=== PATIENT | female | born 1945 | race Caucasian/White ===

== ENCOUNTER 2022-11-09 14:40 | Inpatient (IN) ==
[2022-11-09] MEDS ORDERED: morphine 2 MG/ML VIAL IV ONE (14:53)
[2022-11-09] MEDS ORDERED: ONDANSETRON 4 MG/2 ML VIAL IV ONE (15:10)
--- NOTE | 2022-11-09 15:19 | XRay Report ---
CLINICAL INFORMATION: Trauma-fall COMPARISON: 06/11/2016 FINDINGS: Sacroiliac and hip joints show mild degeneration. Minimally displaced intertrochanteric fracture the right hip appreciated. No other osseous abnormality. Soft tissues are unremarkable. IMPRESSION: Minimally displaced acute intertrochanteric fracture-right hip Interpreted and Authenticated by: Chano Dickson 11/09/22
[2022-11-09] MEDS ORDERED: morphine 2 MG/ML VIAL IV PRN (15:41)
--- NOTE | 2022-11-09 15:47 | Emergency Department Note ---
Fall HPI General Chief Complaint: Fall Stated Complaint: fall Time Seen by Provider: 11/09/22 14:49 Source: patient and EMS Mode of arrival: EMS History of Present Illness HPI Narrative: 76-year-old female with history of abdominal aortic aneurysm, renal artery stenosis, CKD stage III, hypertension, rectal prolapse, hypertension, chronic pain, dementia presents the ED after her fall she sustained a fall earlier this morning onto her right side, now with right hip pain and ambulatory dysfunction. According to EMS the patient fell around 4 AM, was able to get back up per her stepson, and then sustained a second fall at which point EMS was called. Patient denies hitting her head. She is not on blood thinners. Stress test in 2017 shows no ischemia with an EF of 80%. Renal ultrasound from 2019 shows bilateral renal artery stenosis, greater than 50%. Related Data Home Medications Medication Instructions Recorded Confirmed cyanocobalamin (vitamin B-12) 1,000 mcg IM QMONTH 04/15/11/08/22 1,000 mcg/mL injection solution metoprolol succinate 25 mg 25 mg PO QDAY 12/19/15 11/09/22 tablet,extended release 24 hr nitroglycerin 0.4 mg sublingual 0.4 mg sublingual Q5MIN PRN Chest 12/19/15 11/08/22 tablet Pain famotidine 20 mg tablet 40 mg PO QDAY 11/06/19 11/09/22 amlodipine 5 mg tablet 5 mg PO BID 08/27/20 11/09/22 losartan 100 mg tablet 100 mg PO QDAY 08/27/20 11/09/22 calcium carbonate 600 mg calcium 1,200 mg PO QDAY 02/23/21 11/08/22 (1,500 mg) tablet (Calcium) cholecalciferol (vitamin D3) 1,250 1,250 mcg PO .2xwk 02/23/21 11/08/22 mcg (50,000 unit) capsule sdohqra-fmsqkvlemoxsa-uktvidkz 250 1 tab PO Q6H PRN 08/25/22 11/08/22 mg-250 mg-65 mg tablet (Excedrin Extra Strength) diphenhydramine HCl 50 mg capsule 50 mg PO QHS PRN sleep 08/25/22 11/08/22 (Unisom SleepGels) hydrocodone 5 mg-acetaminophen 325 1 tab PO TID PRN Pain 08/25/22 11/09/22 mg tablet ketorolac 0.5 % eye drops 1 drp ophthalmic (eye) TID 08/25/22 11/09/22 latanoprost 0.005 % eye drops 1 drp ophthalmic (eye) QDAY 08/25/22 11/08/22 loteprednol etabonate 0.5 % eye 1 drp ophthalmic (eye) QDAY 08/25/22 11/08/22 drops,suspension Previous Rx's Medication Instructions Recorded ezetimibe 10 mg tablet (Zetia) 10 mg PO QDAY #90 tabs 06/10/17 allopurinol 100 mg tablet 100 mg PO QDAY #30 tabs 12/12/17 Allergies Allergy/AdvReac Type Severity Reaction Status Date / Time olmesartan [From Benicar] Allergy Mild Itching Verified 11/09/22 14:54 rosuvastatin [From Crestor] AdvReac Intermediate Memory Verified 11/09/22 14:54 problem atorvastatin AdvReac Intermediate Joint Pain Uncoded 11/08/22 10:12 Review of Systems ROS ROS Narrative: Narrative: All systems ED: reviewed and negative except as stated. 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) Menopausal syndrome (Chronic) Osteoporosis (Chronic) Postnasal drip (Chronic 02/25/14) Secondary hyperparathyroidism, non-renal (Chronic 01/31/14) Vitamin B 12 deficiency (Chronic 01/31/14) Vitamin B12 nutritional deficiency (Chronic) Stenosis of carotid artery (Chronic) Chronic kidney disease, stage II (mild) (Chronic) Hyperparathyroidism (Chronic) Hypertensive renal disease (Chronic) Anemia (Chronic) Hyperlipidemia (Chronic) Dyslipidemia (Chronic) Stress-induced cardiomyopathy (Chronic) Benign hypertension (Chronic) Atherosclerosis of artery (Acute) Diarrhea (Acute) Arthralgia (Chronic) Chronic use of opiate drugs therapeutic purposes (Chronic) Abdominal aortic aneurysm (Chronic) CKD stage G3a/A2, GFR 45-59 and albumin creatinine ratio 30-299 mg/g (Chronic) Atherosclerotic renal artery stenosis, bilateral (Chronic) Renovascular hypertension with goal blood pressure less than 130/85 (Chronic) Idiopathic hypercalcemia (Chronic) Hyperuricemia, drug-induced, asymptomatic (Acute) Hypercalcemia due to a drug (Acute) COVID-19 (Acute) Muscle spasm of back (Acute) Rectal prolapse (Acute) Complete rectal prolapse (Acute) Medical History (Updated 11/09/22 @ 16:37 by Agnes Cao PA-C) Abdominal aortic aneurysm Date Onset: Infrarenal AAA of 3 cm- need US in 2017 Anemia Anemia, iron deficiency (10/26/11) Anterior myocardial infarction followed by Dr. Harris Arthralgia Arthropathy of lumbar facet joint Atherosclerosis of artery mesenteric artery stenosis, severe Atherosclerotic renal artery stenosis, bilateral Not limiting flow as her GFR is normal on 100 mg a day of losartan Her overall blood pressure pill burden may be reduced by successful angioplasty and stent deployment, this is scheduled for September 04, [address] Clark There was minimal benefit to angioplasty and stenting noted by Back Pain Benign hypertension Chronic kidney disease, stage II (mild) Chronic use of opiate drugs therapeutic purposes Diarrhea Dyslipidemia Elevated blood pressure reading without diagnosis of hypertension (10/26/11) Essential hypertension Goal blood pressure 130/80 given renal disease proteinuria and suprarenal AAA as well as carotid occlusive disease in the left side Fatigue Gout (10/26/11) One flare of the gout in the past on low-dose allopurinol Hyperlipidemia Hyperparathyroidism Hypertensive renal disease Hypocalcemia (01/31/14) Idiopathic hypercalcemia Up to a few days ago she was on a vitamin D supplement. Her parathyroid hormone level runs at the upper limit of normal with a calcium between 10.5 and 11.0 in a patient who is not immobile. 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 Menopausal syndrome Osteoporosis Postnasal drip (02/25/14) Renovascular hypertension with goal blood pressure less than 130/85 Patient says her blood pressure runs higher in the office than it does at home and she is anxious about tomorrow's procedure Secondary hyperparathyroidism, non-renal (01/31/14) Situational depression Stenosis of carotid artery Stress-induced cardiomyopathy Vitamin B 12 deficiency (01/31/14) Vitamin B12 nutritional deficiency Weight loss Surgical History History of appendectomy 1966 History of bilateral breast biopsy , d/t calcification, right side only History of cataract surgery 12/2013- Bilateral eyes, [facility] History of colonoscopy (02/07/14) History of eye surgery 1954, 1956- Left eye 9 years of age for wide gaze, right eye age 11 wide gaze History of gastrectomy 1985:Partial d/t ulcer rupture Hx of esophagogastroduodenoscopy (02/07/14) Hx of tonsillectomy 1949 Family History Mother Aortic aneurysm Pulmonary emphysema Father Pulmonary emphysema Social History Smoking Status: Former smoker Alcohol Intake Frequency: does not drink Substance Use: does not use Exam Narrative Narrative: General: Alert and oriented to self only, NAD, nontoxic appearing. Pleasant and conversant. HEENT: PERRL, EOMI, normocephalic. Moist mucous membranes. Normal facies and normal dentition. Chest: Symmetric, no pain to palpation Respiratory: Lungs clear to auscultation bilaterally. No respiratory distress. Unlabored breathing. Heart: Regular rate and rhythm, grade 3 systolic murmur rating to the bilateral carotids. Abdomen: Non-tender, Non distended, normal bowel tones. No organomegaly. Extremities: Warm and well perfused. No edema. Right foot with nonpitting pedal edema. Right foot NVI. DP 2+ bilaterally. No venous stasis. No obvious deformity of the right hip or leg. She is tender palpation over the proximal anterior femur. No ecchymosis. No significant swelling. Neuro: No focal deficits. Cranial nerves II-XII grossly normal. Skin: Warm dry, no rashes or lesions, no cyanosis. Psych: Normal mood and affect Heme/Lymph: No abnormal bruising Course Course Course Narrative: 76-year-old female with osteoporosis presents for right hip pain after a fall Reevaluation(s) Reevaluation #1: 2 view of the right hip shows intertrochanteric minimally displaced hip fracture. IV has been established and the patient has been receiving 2 to 4 mg of IV morphine for pain Vital Signs Vital signs: Vital Signs Temperature 98.3 F 11/09/22 14:50 Respiratory Rate 20 11/09/22 14:50 Blood Pressure 149/81 11/09/22 14:50 Oxygen Delivery Method 11/09/22 14:50 Temperature 98.3 F 11/09/22 14:50 Pulse Rate 98 H 11/09/22 16:01 Respiratory Rate 20 11/09/22 14:50 Blood Pressure 115/70 11/09/22 16:01 Pulse Oximetry (%) 100 11/09/22 16:01 Oxygen Delivery Method 11/09/22 14:50 MDM MDM Narrative Medical decision making narrative: Right intertrochanteric hip fracture Dr. De Leon has been notified. He is asking for hospitalist admission. I reached out to Dr. Ma who has accepted the patient for admission. Lab Data Result diagrams: 11/09/22 15:52 11/09/22 15:52 ED POC Tests ED POC Tests: RITIKA - SARS Antigen Negative Discharge Plan Patient/Caregiver Discharge Instructions Pt seen by NURSE ORTHO/PA only: Yes Clinical Impression: Closed intertrochanteric fracture of right hip Patient Disposition: Xfer As Inpt ([facility]) Follow up with: Halle Feng, MAN, SCHEDULE MANAGER [Primary Care Provider] - Prescriptions: No Action ezetimibe [Zetia] 10 mg tablet 10 mg PO QDAY Qty: 90 4RF allopurinol 100 mg tablet 100 mg PO QDAY Qty: 30 12RF cyanocobalamin (vitamin B-12) 1,000 mcg/mL solution 1,000 mcg IM QMONTH nitroglycerin 0.4 mg tablet, sublingual 0.4 mg SUBLINGUAL Q5MIN PRN (Reason: Chest Pain) metoprolol succinate 25 mg tablet extended release 24 hr 25 mg PO QDAY famotidine 20 mg tablet 40 mg PO QDAY amlodipine 5 mg tablet 5 mg PO BID losartan 100 mg tablet 100 mg PO QDAY hydrocodone-acetaminophen 5-325 mg tablet 1 tab PO TID PRN (Reason: Pain) Rx Instructions: 7.5 mg -325 mg calcium carbonate [Calcium 600] 600 mg calcium (1,500 mg) tablet 1,200 mg PO QDAY cholecalciferol (vitamin D3) 1,250 mcg (50,000 unit) capsule 1,250 mcg PO .2xwk Excedrin Extra Strength 250-250-65 mg tablet 1 tab PO Q6H PRN diphenhydramine HCl [Unisom SleepGels] 50 mg capsule 50 mg PO QHS PRN (Reason: sleep) latanoprost 0.005 % drops 1 drp ophthalmic (eye) QDAY ketorolac 0.5 % drops 1 drp ophthalmic (eye) TID loteprednol etabonate 0.5 % drops,suspension 1 drp ophthalmic (eye) QDAY
--- NOTE | 2022-11-09 16:43 | XRay Report ---
CLINICAL INFORMATION: Preop COMPARISON: None. TECHNIQUE: Portable FINDINGS: The heart size, mediastinum and pulmonary vessels are unremarkable. COPD changes noted. No infiltrates. There are no effusions. The bones and soft tissues are within normal limits. IMPRESSION: COPD. No acute disease Interpreted and Authenticated by: Chano Dickson 11/09/22
[2022-11-09] MEDS ORDERED: HYDROcodone/APAP 5/325MG TABLET PO PRN (16:47)
[2022-11-09 16:49] LABS: Basophils # (Auto) 0.07 K/mcL (0.00-0.30); Basophils % (Auto) 0.6 % (0.0-2.0); Eosinophils # (Auto) 0.03 K/mcL (0.00-0.70); Eosinophils % (Auto) 0.3 % (0.0-7.0); Hematocrit 35.7 % (34.1-44.9); Hemoglobin 11.2 g/dL (11.2-15.7); Lymphocytes # (Auto) 0.99 K/mcL (1.50-4.80); Lymphocytes % (Auto) 8.7 % (15.5-49.0); Mean Cell Volume 103.5 fL (80.0-100.0); Mean Corpuscular HGB Conc 31.4 g/dL (31.0-36.0); Mean Platelet Volume 9.7 fL (8.8-12.5); Monocytes # (Auto) 0.69 K/mcL (0.10-0.90); Platelet Count 218 K/mcL (140-440); RBC 3.45 M/mcL (3.59-5.38); Red Cell Distribution Width 13.4 % (11.5-14.5); WBC 11.4 K/mcL (4.5-11.0)
--- NOTE | 2022-11-09 17:00 | Internal Med History&Physical ---
HPI History of Present Illness Patient information: Note initiated : 11/09/22 at 4:48 pm Service Date, if different from initiated Date: [] Patient: Stephanie Schaffer a 76 y/o F admitted on for fall. Chief Complaint: [fall] Chief complaint: fall History of present illness: Ms. Schaffer is a 76 year old F history of dementia, rectal prolapse, gout, essential hypertensions, dyslipidemia, AAA, presenting with fall at home. Following history is limited by the patient's mentations. It was reported patient had an episode of fall at home and EMS was called to send patient to our ED for further evaluations. Hip x-ray reviewed closed intertrochanteric fracture of the right hip. Labs still pending at the moment. Admission request was called for hip fracture needing surgical management. 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) Menopausal syndrome (Chronic) Osteoporosis (Chronic) Postnasal drip (Chronic 02/25/14) Secondary hyperparathyroidism, non-renal (Chronic 01/31/14) Vitamin B 12 deficiency (Chronic 01/31/14) Vitamin B12 nutritional deficiency (Chronic) Stenosis of carotid artery (Chronic) Chronic kidney disease, stage II (mild) (Chronic) Hyperparathyroidism (Chronic) Hypertensive renal disease (Chronic) Anemia (Chronic) Hyperlipidemia (Chronic) Dyslipidemia (Chronic) Stress-induced cardiomyopathy (Chronic) Benign hypertension (Chronic) Atherosclerosis of artery (Acute) Diarrhea (Acute) Arthralgia (Chronic) Chronic use of opiate drugs therapeutic purposes (Chronic) Abdominal aortic aneurysm (Chronic) CKD stage G3a/A2, GFR 45-59 and albumin creatinine ratio 30-299 mg/g (Chronic) Atherosclerotic renal artery stenosis, bilateral (Chronic) Renovascular hypertension with goal blood pressure less than 130/85 (Chronic) Idiopathic hypercalcemia (Chronic) Hyperuricemia, drug-induced, asymptomatic (Acute) Hypercalcemia due to a drug (Acute) COVID-19 (Acute) Muscle spasm of back (Acute) Rectal prolapse (Acute) Complete rectal prolapse (Acute) Medical History (Updated 11/09/22 @ 16:56 by Salvador Ma MD) Abdominal aortic aneurysm Date Onset: Infrarenal AAA of 3 cm- need US in 2017 Anemia Anemia, iron deficiency (10/26/11) Anterior myocardial infarction followed by Dr. Harris Arthralgia Arthropathy of lumbar facet joint Atherosclerosis of artery mesenteric artery stenosis, severe Atherosclerotic renal artery stenosis, bilateral Not limiting flow as her GFR is normal on 100 mg a day of losartan Her overall blood pressure pill burden may be reduced by successful angioplasty and stent deployment, this is scheduled for September 04, [address] Clark There was minimal benefit to angioplasty and stenting noted by .2019 Back Pain Benign hypertension Chronic kidney disease, stage II (mild) Chronic use of opiate drugs therapeutic purposes Diarrhea Dyslipidemia Elevated blood pressure reading without diagnosis of hypertension (10/26/11) Essential hypertension Goal blood pressure 130/80 given renal disease proteinuria and suprarenal AAA as well as carotid occlusive disease in the left side Fatigue Gout (10/26/11) One flare of the gout in the past on low-dose allopurinol Hyperlipidemia Hyperparathyroidism Hypertensive renal disease Hypocalcemia (01/31/14) Idiopathic hypercalcemia Up to a few days ago she was on a vitamin D supplement. Her parathyroid hormone level runs at the upper limit of normal with a calcium between 10.5 and 11.0 in a patient who is not immobile. 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 Menopausal syndrome Osteoporosis Postnasal drip (02/25/14) Renovascular hypertension with goal blood pressure less than 130/85 Patient says her blood pressure runs higher in the office than it does at home and she is anxious about tomorrow's procedure Secondary hyperparathyroidism, non-renal (01/31/14) Situational depression Stenosis of carotid artery Stress-induced cardiomyopathy Vitamin B 12 deficiency (01/31/14) Vitamin B12 nutritional deficiency Weight loss Surgical History History of appendectomy 1967 History of bilateral breast biopsy 1980's, d/t calcification, right side only History of cataract surgery 12/2013- Bilateral eyes, [facility] History of colonoscopy (02/07/14) History of eye surgery 1954, 1956- Left eye 9 years of age for wide gaze, right eye age 11 wide gaze History of gastrectomy 1986:Partial d/t ulcer rupture Hx of esophagogastroduodenoscopy (02/07/14) Hx of tonsillectomy 1950 Family History Mother Aortic aneurysm Pulmonary emphysema Father Pulmonary emphysema Social History household members: spouse housing: house marital status: occupational status: retired pets and animals: Yes pets and animals: dog(s) sexually active: No well-balanced diet: daily or most days during the past year weight has: remained stable physical activity: walking frequency: 1-2 times per week duration: < 15 minutes/day smoking status: Former smoker quit date: 10/24/86 pack-years: 14 alcohol intake frequency: does not drink substance use type: does not use petar/mandaeism: [employer] seatbelt use: always working smoke detector in home: Yes MEDS/ALLERGIES Home Medications and Allergies Home Medications Medication Instructions Recorded Confirmed Type cyanocobalamin (vitamin B-12) 1,000 mcg IM QMONTH 04/15/15 11/08/22 History 1,000 mcg/mL injection solution metoprolol succinate 25 mg 25 mg PO QDAY 12/19/15 11/09/22 History tablet,extended release 24 hr nitroglycerin 0.4 mg sublingual 0.4 mg sublingual Q5MIN PRN Chest 12/19/15 11/08/22 History tablet Pain ezetimibe 10 mg tablet (Zetia) 10 mg PO QDAY #90 tabs 06/10/17 11/09/22 Rx allopurinol 100 mg tablet 100 mg PO QDAY #30 tabs 12/12/17 11/09/22 Rx famotidine 20 mg tablet 40 mg PO QDAY 11/06/19 11/09/22 History amlodipine 5 mg tablet 5 mg PO BID 08/27/20 11/09/22 History losartan 100 mg tablet 100 mg PO QDAY 08/27/20 11/09/22 History calcium carbonate 600 mg calcium 1,200 mg PO QDAY 02/23/21 11/08/22 History (1,500 mg) tablet (Calcium) cholecalciferol (vitamin D3) 1,250 1,250 mcg PO .2xwk 02/23/21 11/08/22 History mcg (50,000 unit) capsule dqgvsvx-woteyudiekeul-frytmnie 250 1 tab PO Q6H PRN 08/25/22 11/08/22 History mg-250 mg-65 mg tablet (Excedrin Extra Strength) diphenhydramine HCl 50 mg capsule 50 mg PO QHS PRN sleep 08/25/22 11/08/22 History (Unisom SleepGels) hydrocodone 5 mg-acetaminophen 325 1 tab PO TID PRN Pain 08/25/22 11/09/22 History mg tablet ketorolac 0.5 % eye drops 1 drp ophthalmic (eye) TID 08/25/22 11/09/22 History latanoprost 0.005 % eye drops 1 drp ophthalmic (eye) QDAY 08/25/22 11/08/22 History loteprednol etabonate 0.5 % eye 1 drp ophthalmic (eye) QDAY 08/25/22 11/08/22 History drops,suspension Allergies Allergy/AdvReac Type Severity Reaction Status Date / Time olmesartan [From Benicar] Allergy Mild Itching Verified 11/09/22 14:54 rosuvastatin [From Crestor] AdvReac Intermediate Memory Verified 11/09/22 14:54 problem atorvastatin AdvReac Intermediate Joint Pain Uncoded 11/08/22 10:12 EXAM Constitutional Vitals: Temp Pulse Resp BP Pulse Ox O2 Del Method 36.8 C 98 H 20 115/70 100 11/09/22 14:50 11/09/22 16:01 11/09/22 14:50 11/09/22 16:01 11/09/22 16:01 11/09/22 14:50 General appearance: cooperative and no acute distress Head Head exam: Present atraumatic and normocephalic Eye Eye exam: Present EOMI and PERRL ENT ENT exam: Present mucous membranes moist, normal exam and normal external ear exam Neck Neck exam: Present normal inspection; Absent lymphadenopathy, tenderness or thyromegaly Respiratory Respiratory exam: Absent accessory muscle use, respiratory distress or wheezes Cardiovascular Cardiovascular exam: Present normal rate and rhythm; Absent JVD GI/Abdominal GI/Abdominal exam: Present normal bowel sounds and soft; Absent organomegaly or tenderness Rectal Additional comments: Recal prolapse Extremities Exam Extremities exam: Present normal capillary refill, normal inspection and tenderness; Absent full ROM Neurological Exam Neurological exam: Present alert, altered and CN II-XII intact; Absent motor sensory deficit or oriented X3 Psychiatric Psychiatric exam: Present normal affect and normal mood; Absent anxious or depressed Skin Skin exam: Present dry and intact DATA Data Completed and Pending Labs: Labs from last 24 hours 11/09/22 11/09/22 11/09/22 15:52 15:52 15:52 WBC Pending RBC Pending Hgb Pending Hct Pending MCV Pending MCH Pending MCHC Pending RDW Pending Plt Count Pending MPV Pending Immature Gran % (Auto) Pending Neut % (Auto) Pending Immature Gran # Pending PT Pending INR Pending Sodium Pending Potassium Pending Chloride Pending Carbon Dioxide Pending Anion Gap Pending BUN Pending Creatinine Pending GFR Calculation Pending Glucose Pending Calcium Pending Total Bilirubin Pending AST Pending ALT Pending Alkaline Phosphatase Pending Total Protein Pending Albumin Pending Globulin Pending Albumin/Globulin Ratio Pending A/P Assessment and plan (1) Closed intertrochanteric fracture of right hip: Status: Acute (2) RP (rectal prolapse): Status: Acute (3) Abdominal aortic aneurysm: Status: Chronic Comment: Date Onset: Infrarenal AAA of 3 cm- need US in 2017 (4) Gout: Status: Chronic Comment: One flare of the gout in the past on low-dose allopurinol Qualifiers: Encounter type: sequela Chronicity: unspecified Laterality: unspecified laterality (5) Essential hypertension: Status: Chronic Comment: Goal blood pressure 130/80 given renal disease proteinuria and suprarenal AAA as well as carotid occlusive disease in the left side (6) Dyslipidemia: Status: Chronic (7) Dementia: Status: Acute Narrative A/P Narrative: Assessment and Plans: 1. Closed intertrochanteric fracture of right hip: Inpatient med surg Dr. De Leon for surgical management Bedrest NPO after midnight with IV fluid Morphine Toradol Physical therapy evaluation and treatment 2. h/o AAA: Repeat abdominal US 3. h/o essential HTN: Amlodipine Losartan Metoprolol Succinate 3. Mixed dyslipidemia: Zetia 4. Dementia: Continue to monitor 5. Rectal prolapse: Continue to monitor 6. Gout: Allopurinol GI ppx: PEPCID DVT pp: SCDs Code status: Full Prognosis: Stable Disposition: inpatient med surg; PT Time Spent With Patient Time: Total time spent is greater than 50% in coordination of care (as documented) at patient's floor/unit and/or counseling patient: Initial: Total time with patient: 55 - 74 minutes
[2022-11-09 17:06] LABS: INR 0.9 (0.9-1.1); Prothrombin Time 12.2 sec (11.9-14.5)
[2022-11-09 17:18] LABS: ALT/SGPT 21 U/L (<40); AST/SGOT 32 U/L (<32); Albumin 4.1 gm/dL (3.2-5.2); Albumin/Globulin Ratio 1.6 (1.0-2.3); Alkaline Phosphatase 81 U/L (39-117); Bilirubin,Total 0.4 mg/dL (0.1-1.0); Blood Urea Nitrogen 32 mg/dL (8-23); Carbon Dioxide 25 mmol/L (22-30); Chloride 97 mmol/L (96-108); Globulin 2.5 gm/dL (2.2-3.7); Glomerular Filtration Rate 27; Glucose 119 mg/dL (70-105)
--- NOTE | 2022-11-09 17:53 | Cat Scan Report ---
CLINICAL INFORMATION: Trauma. COMPARISON: Abdomen and pelvic CT 03/10/2017 TECHNIQUE: 0.625 mm helical slices were obtained from the mid L4 through the subtrochanteric regions. Following reconstruction, 2.5 mm sagittal, coronal and axial reformations were processed. The exam was reviewed in bone and soft tissue windows. The exam was performed using radiation dose optimization techniques including, but not limited to, automated exposure control, adjustment of mA and/or kV according to patient size and use of iterative reconstruction technique. FINDINGS: Minimally impacted and minimally displaced acute intertrochanter fracture through the right hip appreciated. Both hip and SI joints are normal in width and alignment without arthritic change. Grade 1 L5-S1 spondylolisthesis due to degenerative facet disease is stable. Moderate broad disc protrusion right-sided asymmetry resulting in severe right IV foraminal narrowing with impingement of the exiting right L5 nerve root. There is moderate central canal stenosis. Slight progression from previous exam. Soft tissues are significant for moderate, yet stable, gallbladder enlargement with multiple small stones layering dependently. There is borderline aneurysmal enlargement infrarenal abdominal aorta spanning 2.7 cm. It is incompletely imaged.. Bilateral renal cysts again noted. Hysterectomy oophorectomy changes appreciated. Urinary bladder is normal. Small large bowel are mildly dilated with moderate colonic stool compatible with mild ileus IMPRESSION: 1. Minimally impacted, minimally displaced acute intertrochanteric fracture-right hip. 2. Borderline aneurysm of the infrarenal abdominal aortic aorta. It is incompletely imaged: Suggest abdominal aortic ultrasound. 3. Moderate gallbladder enlargement multiple small stones layering dependently. No change from [address] 4. Mild ileus with moderate colonic stool. 5. Grade 1 L5-S1 spondylolisthesis due to degenerative facet disease with broad disc protrusion with right-sided asymmetry resulting in severe right IV foraminal narrowing and exiting right L5 nerve root impingement. Slight progression. Interpreted and Authenticated by: Chano Dickson 11/09/22
--- NOTE | 2022-11-09 18:42 | Brief Operative Note ---
Brief Operative Note Date of procedure: 11/09/22 Pre-op diagnosis: R hip fracture Post-op diagnosis: same Procedure: gamma orif Grafts/Implants: Yes Anesthesia: GETA Findings: stable fixation Complications: none Surgeon: Javier De Leon Estimated blood loss (cc): 100 Specimens Removed/Pathology: none sent
[2022-11-09] MEDS ORDERED: ONDANSETRON 4 MG/2 ML VIAL IV PRN ×2 (18:46→19:33)
[2022-11-09] MEDS ORDERED: morphine 4 MG/ML VIAL IV PRN (18:46)
[2022-11-09] MEDS ORDERED: traZODone HCL 50 MG TABLET PO PRN (18:46)
[2022-11-09] MEDS ORDERED: hydrALAZINE 20 MG/ML VIAL IV PRN (18:46)
[2022-11-09] MEDS ORDERED: ACETAMINOPHEN 325 MG TABLET PO PRN (18:46)
[2022-11-09] MEDS ORDERED: IPRATROPIUM/ALBUTEROL 3 ML AMPUL.NEB NEB PRN ×2 (18:46→19:33)
[2022-11-09] MEDS ORDERED: ceFAZolin 1 GM VIAL IV ONE (18:53)
[2022-11-09] MEDS ORDERED: ceFAZolin 1 GM VIAL ONE (19:01)
[2022-11-09] MEDS ORDERED: ETOMIDATE 20 MG/10 ML VIAL IV ONE (19:06)
[2022-11-09] MEDS ORDERED: MIDAZOLAM 2 MG/2 ML VIAL ONE (19:06)
[2022-11-09] MEDS ORDERED: TRANEXAMIC ACID 1,000 MG/10 ML VIAL ONE (19:06)
[2022-11-09 19:13] LABS: Appearance,Urine CLEAR (Clear); Bilirubin,Urine NEGATIVE (Negative); Color,Urine LT. YELLOW; Culture Indicated,Urine No; Glucose,Urine (UA) NEGATIVE (Negative); Ketones,Urine TRACE mg/dL (Negative); Leukocyte Esterase,Urine NEGATIVE /uL (Negative); Mucus,Urine FEW /hpf; Nitrate,Urine NEGATIVE (Negative); PH,Urine 5.5 (5.0-9.0); Protein,Urine 30 mg/dL (Negative); Specific Gravity,Urine 1.025 (1.000-1.035); Urine Blood LARGE ery/mcL (Negative); Urine RBC 8 /hpf (0-3); Urine Squamous Epithelial Cell 1 /hpf (0-4); Urine WBC 3 /hpf (0-4); Urobilinogen,Urine Normal
[2022-11-09] MEDS ORDERED: ACETAMINOPHEN 1,000 MG/100 ML BAG IV ONE (19:33)
[2022-11-09] MEDS ORDERED: HYDROmorphone 0.5 MG/0.5 ML SYRINGE IV PRN (19:33)
[2022-11-09] MEDS ORDERED: LABETALOL 5 MG/ML ML IV PRN (19:33)
[2022-11-09] MEDS ORDERED: MEPERIDINE 25 MG/ML VIAL IV PRN (19:33)
--- NOTE | 2022-11-09 19:56 | History and Physical Report ---
DATE OF ADMISSION: 11/09/2022 IDENTIFICATION: A 76-year-old female. CHIEF COMPLAINT: Right hip fracture. HISTORY: Stephanie had a non syncopal ground level fall, had immediate pain and was unable to bear weight. She presents to the emergency room for evaluation and management. PAST MEDICAL HISTORY: Complicated by dementia, history of aortic aneurysm, gout, hypertension, mild chronic kidney disease, hyperlipidemia, and rectal prolapse. PAST SURGICAL HISTORY: Noncontributory to this present problem. MEDICATIONS: Include, 1. Metoprolol. 2. Nitroglycerine. 3. Zetia. 4. Allopurinol. 5. ____. 6. Amlodipine. 7. Losartan. 8. Calcium. 9. Benadryl. 10. Hydrocodone. 11. Ophthalmic drops. ALLERGIES: TO CRESTOR AND BENICAR. PHYSICAL EXAMINATION: General: She is awake and alert. She does have some obvious dementia. She answers questions but does get confused about person and place. Head: Normocephalic, atraumatic. Eyes: PERRLA. Conjunctiva clear. ENT: Within normal limits. Neck: Supple without pain on range of motion. Heart: Regular. Lungs: Clear. Abdomen: Benign. Extremities: Her right lower extremity is carefully positioned. She does have some diffuse lymphedema, is without neurovascular deficits. She does have pain with any motion. IMAGING: Her radiographs demonstrate a fracture of low base of the neck. IMPRESSION: Right hip fracture. PLAN: We will proceed with a reduction in internal fixation. The surgical procedure is discussed with the patient and her and consent was given by her . We will plan to proceed with surgery. GDD:virginie Job ID: [id number] Doc ID: [id number] Javier De Leon MD
[2022-11-09] MEDS ORDERED: BISACODYL 10 MG SUPP.RECT PR PRN (20:22)
[2022-11-09] MEDS ORDERED: MAGNESIUM HYDROXIDE 30 ML ORAL.SUSP PO PRN (20:22)
[2022-11-09] MEDS ORDERED: POLYETHYLENE GLYCOL 3350 17 GM PACKET PO PRN (20:22)
[2022-11-09] MEDS ORDERED: FLEETS ADULT ENEMA PR PRN (20:22)
[2022-11-09] MEDS ORDERED: 0.9 % SODIUM CHLORIDE 10 ML SYRINGE IV ONE (20:24)
[2022-11-09] MEDS: fentaNYL 100 MCG/2 ML VIAL IV PRN ×2 (20:49→20:53)
[2022-11-09] MEDS ORDERED: SENNOSIDES 1 TABLET PO SCH (21:00)
[2022-11-09] MEDS ORDERED: DOCUSATE SODIUM 100 MG CAPSULE PO SCH (21:00)
[2022-11-09] MEDS: 0.9 % SODIUM CHLORIDE 1,000 ML IV SCH (21:20)
[2022-11-09] MEDS: KETOROLAC TROMETHAMINE 1 GTT BOTTLE BOTH EYES SCH (21:41)
[2022-11-09] MEDS: ASPIRIN 81 MG TAB.CHEW PO SCH (21:49)
[2022-11-09] MEDS: SENNOSIDES 1 TABLET PO SCH (21:49)
[2022-11-09] MEDS: DOCUSATE SODIUM 100 MG CAPSULE PO SCH (21:49)
[2022-11-09] MEDS: amLODIPine 5 MG TABLET PO SCH (21:49)
[2022-11-09] MEDS: 0.9 % SODIUM CHLORIDE 10 ML SYRINGE IV SCH (21:52)
--- NOTE | 2022-11-10 03:09 | XRay Report ---
CLINICAL INFORMATION: ORIF right intertrochanteric fracture COMPARISON: Pelvic CT 11/09/2022. FINDINGS: Multiple digital images from the OR show intertrochanteric fracture reduced to anatomic alignment and transfixed by gamma nail. Right hip is normal. Total fluoroscopy time 0.5 minutes.. IMPRESSION: ORIF intertrochanteric fracture-anatomic alignment Interpreted and Authenticated by: Chano Dickson 11/10/22
--- NOTE | 2022-11-10 03:14 | Ultrasound Report ---
CLINICAL INFORMATION: Abdominal aortic aneurysm COMPARISON: Abdomen and pelvic CT 03/10/2017. Abdominal ultrasound 04/13/2018 FINDINGS: -Aortic dimensions: -Proximal: 2.6 -Suprarenal: 2.0 -Infrarenal: 2.8 -Distal: 3.0 -Right common iliac artery: 1.9 -Left common iliac artery: 1.5 IMPRESSION: Mild infrarenal abdominal aortic aneurysm-maximal diameter: 3 cm. No change since comparison examination over four years ago Interpreted and Authenticated by: Chano Dickson 11/10/22
[2022-11-10] MEDS: ceFAZolin 1 GM VIAL IV SCH ×2 (03:15→12:05)
[2022-11-10] MEDS: KETOROLAC 30 MG/ML VIAL IV PRN ×3 (04:32→21:47)
[2022-11-10] MEDS: 0.9 % SODIUM CHLORIDE 1,000 ML IV SCH ×2 (04:41→09:22)
[2022-11-10] MEDS: 0.9 % SODIUM CHLORIDE 10 ML SYRINGE IV SCH ×3 (04:43→21:49)
[2022-11-10] MEDS: HYDROcodone/APAP 5/325MG TABLET PO PRN ×3 (05:39→21:47)
[2022-11-10 07:43] LABS: Basophils # (Auto) 0.04 K/mcL (0.00-0.30); Basophils % (Auto) 0.6 % (0.0-2.0); Eosinophils # (Auto) 0.12 K/mcL (0.00-0.70); Eosinophils % (Auto) 1.8 % (0.0-7.0); Hematocrit 25.7 % (34.1-44.9); Lymphocytes # (Auto) 1.03 K/mcL (1.50-4.80); Lymphocytes % (Auto) 15.6 % (15.5-49.0); Mean Cell Volume 103.6 fL (80.0-100.0); Mean Corpuscular HGB Conc 31.1 g/dL (31.0-36.0); Mean Platelet Volume 9.3 fL (8.8-12.5); Monocytes # (Auto) 0.58 K/mcL (0.10-0.90); Monocytes % (Auto) 8.8 % (1.0-12.0); Neutrophils % (Auto) 72.9 % (38.0-78.0); Platelet Count 144 K/mcL (140-440); RBC 2.48 M/mcL (3.59-5.38); Red Cell Distribution Width 13.3 % (11.5-14.5); WBC 6.6 K/mcL (4.5-11.0)
--- NOTE | 2022-11-10 08:02 | Orthopedic Progress Note ---
SUBJECTIVE Subjective Patient information: Note initiated : 11/10/22 at 7:58 am Service Date, if different from initiated Date: [] Patient: Stephanie Schaffer 76 y/o F admitted on 11/09/22 for fall. Chief Complaint: [S/p right hip fx] Patient is doing well and has no complaints currently. She is resting comfortably. She denies any new onset chest pain, SOA, or calf tenderness. Constitutional Vitals: Vital Signs Temp Pulse Resp BP Pulse Ox O2 Del Method O2 Flow Rate 98.6 F 81 18 126/60 91 2 11/10/22 07:16 11/10/22 07:16 11/10/22 07:16 11/10/22 07:16 11/10/22 07:16 11/10/22 07:16 11/10/22 03:38 Period Temp Pulse Resp BP Sys/Savage Pulse Ox O2 Del Method O2 Flow Rate Last 24 Hr 97.2 F-99.5 F 39-132 6-28 73-186/48-120 89-100 Nasal Cannula- Room Air 0-6 Intake and Output 11/09/22 11/10/22 11/10/22 19:59 03:59 11:59 Intake Total 1270 Output Total 675 Balance 595 Weight 77 lb 83 lb 6.4 oz Intake & Output: Intake & Output 11/09/22 11/10/22 11/10/22 19:59 03:59 11:59 Intake Total 1270 Output Total 675 Balance 595 Weight 77 lb 83 lb 6.4 oz Intake: IV 100 Oral 270 IV - Manual Only 900 Output: Void Amount 625 Estimated Blood Loss 50 Other: Urine Appearance Clear Urine Color Yellow Urine Odor Normal General appearance: no acute distress Head Head exam: Present atraumatic and normocephalic Extremities Exam Extremities exam: Present calf tenderness (negative bilaterally), tenderness (lateral hip), Cj's sign (negative bilaterally), Foot pink and warm and neurovascular intact Additional comments: lateral hip dressings are clean, dry, and intact Neurological Exam Neurological exam: Present alert and oriented X3 Psychiatric Psychiatric exam: Present normal affect OBJ DATA Labs CBC & Chem 7: 11/10/22 05:06 11/09/22 15:52 Labs: Abnormal Lab Results 11/10/22 11/09/22 11/09/22 05:06 18:23 15:52 WBC RBC 2.48 L Hgb 8.0 L Hct 25.7 L MCV 103.6 H Neut % (Auto) Lymph % (Auto) Lymph # (Auto) 1.03 L Absolute Neutrophils BUN 32 H Creatinine 1.8 H Glucose 119 H AST 32 H Urine Protein 30 A Urine Ketones Trace A Urine Occult Blood Large A Urine RBC 8 H Urine Mucus Few A 11/09/22 15:52 WBC 11.4 H RBC 3.45 L Hgb Hct MCV 103.5 H Neut % (Auto) 84.0 H Lymph % (Auto) 8.7 L Lymph # (Auto) 0.99 L Absolute Neutrophils 9.59 H BUN Creatinine Glucose AST Urine Protein Urine Ketones Urine Occult Blood Urine RBC Urine Mucus Meds: Medications Acetaminophen (Acetaminophen 325 Mg Tablet) 650 mg PO Q6HP PRN; Protocol PRN Reason: Per Pain Protocol/Fever > 101 Hydrocodone Bitart/Acetaminophen (Hydrocodone/Apap 5/325mg Tablet) 0 tab PO Q4HP PRN; Protocol PRN Reason: Per Pain Protocol Last Admin: 11/10/22 05:39 Dose: 1 tab Albuterol/Ipratropium (Ipratropium/Albuterol 3 Ml Ampul.Neb) 3 ml NEB Q4HRT PRN PRN Reason: Wheezing Allopurinol (Allopurinol 100 Mg Tablet) 100 mg PO QDAY [facility] Amlodipine Besylate (Amlodipine 5 Mg Tablet) 5 mg PO BID [facility] Last Admin: 11/09/22 21:49 Dose: 5 mg Aspirin (Aspirin 81 Mg Tab.Chew) 81 mg PO BID [facility] Last Admin: 11/09/22 21:49 Dose: 81 mg Bisacodyl (Bisacodyl 10 Mg Supp.Rect) 10 mg SC Q2-3DAYS PRN PRN Reason: Constipation Cefazolin Sodium (Cefazolin 1 Gm Vial) 1 gm IV Q8H [facility]; Protocol Stop: 11/10/22 11:01 Last Admin: 11/10/22 03:15 Dose: 1 gm Docusate Sodium (Docusate Sodium 100 Mg Capsule) 100 mg PO BID [facility] Last Admin: 11/09/22 21:49 Dose: 100 mg Ezetimibe (Ezetimibe 10 Mg Tablet) 10 mg PO QDAY [facility] Famotidine (Famotidine 20 Mg Tablet) 40 mg PO QDAY [facility] Hydralazine HCl (Hydralazine 20 Mg/Ml Vial) 10 mg IV Q4-6HP PRN PRN Reason: Hypertension Sodium Chloride (Sodium Chloride 0.9%) 1,000 mls @ 100 mls/hr IV .Q10H [facility] Last Admin: 11/10/22 04:41 Dose: Not Given Ketorolac Tromethamine (Ketorolac Tromethamine 1 Gtt Bottle) 1 gtt BOTH EYES TID [facility] Last Admin: 11/09/22 21:41 Dose: Not Given Ketorolac Tromethamine (Ketorolac 30 Mg/Ml Vial) 30 mg IV Q6HP PRN; Protocol PRN Reason: Per Pain Protocol Stop: 11/11/22 16:46 Last Admin: 11/10/22 04:32 Dose: 30 mg Losartan Potassium (Losartan 50 Mg Tablet) 100 mg PO QDAY [facility] Magnesium Hydroxide (Magnesium Hydroxide 30 Ml Oral.Susp) 30 ml PO BIDP PRN PRN Reason: Constipation Metoprolol Succinate (Metoprolol Succinate 25 Mg Tab.Xl.24h) 25 mg PO QDAY [facility] Morphine Sulfate (Morphine 4 Mg/Ml Vial) 4 mg IV Q4HP PRN; Protocol PRN Reason: Per Pain Protocol Ondansetron HCl (Ondansetron 4 Mg/2 Ml Vial) 4 mg IV Q6HP PRN PRN Reason: Nausea And Vomiting Polyethylene Glycol (Polyethylene Glycol 3350 17 Gm Packet) 17 gm PO DAILYP PRN PRN Reason: Constipation Senna (Sennosides 1 Tablet) 2 tab PO HS [facility] Last Admin: 11/09/22 21:49 Dose: 2 tab Sodium Biphosphate/Sodium Phosphate (Fleets Adult Enema) 1 dose SC Q3-4DAYS PRN PRN Reason: Constipation Sodium Chloride (0.9 % Sodium Chloride 10 Ml Syringe) 10 ml IV Q8 [facility] Last Admin: 11/10/22 04:43 Dose: Not Given Trazodone HCl (Trazodone Hcl 50 Mg Tablet) 25 mg PO HSP PRN PRN Reason: Insomnia A/P Assessment and plan (1) Closed intertrochanteric fracture of right hip: Assessment and plan: NWB on RLE. Mobilize with PT/OT. Case management consult. Follow-up with [facility] in 2 weeks. Status: Acute Time Spent With Patient Time: Total time spent is greater than 50% in coordination of care (as documented) at patient's floor/unit and/or counseling patient:
--- NOTE | 2022-11-10 08:08 | Operative Note ---
DATE OF OPERATION: 11/09/2022 DATE OF PROCEDURE: 11/09/2022 PREOPERATIVE DIAGNOSIS: Right intertrochanteric/low base of the neck hip fracture. POSTOPERATIVE DIAGNOSIS: Right intertrochanteric/low base of the neck hip fracture. OPERATION PROPOSED: Open reduction and internal fixation of right hip fracture with intramedullary fixation device gamma nail from [facility]. OPERATION PERFORMED: Open reduction and internal fixation of right hip fracture with intramedullary fixation device gamma nail from [facility]. OPERATING SURGEON: Javier De Leon MD INDICATIONS: This is a 76-year-old lady with a displaced fracture of the intertrochanteric region. The lesser trochanter is in place. DESCRIPTION OF PROCEDURE: Informed consent was obtained. She was taken to the operating room and provided with appropriate anesthetic and prophylactic antibiotics. She was carefully positioned. An incision was made proximal to the greater trochanter. I spread through the gluteal musculature, arriving on the tip of the greater trochanter and entered with a 3.2 mm guidewire. I then used an opening reamer. I did have to ream the canal to get the 11 mm kashmir and this was a short nail, but I reamed to a 12.5. I inserted a short gamma nail, a guidewire was placed retrograde across the fracture, low in the calcar and centered on the lateral view. I reamed and I placed an intramedullary hip screw that was locked to the kashmir after compressing. I then placed a distal interlocking screw. The wounds were irrigated and closed. The procedure was tolerated well. No complications. ESTIMATED BLOOD LOSS: 100 mL. GDD:darron Job ID: [id number] Doc ID: [id number] Javier De Leon MD
[2022-11-10] MEDS: amLODIPine 5 MG TABLET PO SCH ×2 (08:11→21:46)
[2022-11-10] MEDS: EZETIMIBE 10 MG TABLET PO SCH (08:11)
[2022-11-10] MEDS: METOPROLOL SUCCINATE 25 MG TAB.XL.24H PO SCH (08:11)
[2022-11-10] MEDS: DOCUSATE SODIUM 100 MG CAPSULE PO SCH ×2 (08:12→21:46)
[2022-11-10] MEDS: ALLOPURINOL 100 MG TABLET PO SCH (08:12)
[2022-11-10] MEDS: LOSARTAN 50 MG TABLET PO SCH (08:12)
[2022-11-10] MEDS: ASPIRIN 81 MG TAB.CHEW PO SCH ×2 (08:12→21:46)
[2022-11-10 08:18] LABS: Blood Urea Nitrogen 19 mg/dL (8-23); Calcium 8.6 mg/dL (8.6-10.4); Carbon Dioxide 21 mmol/L (22-30); Chloride 105 mmol/L (96-108); Glomerular Filtration Rate 48; Glucose 94 mg/dL (70-105)
[2022-11-10] MEDS: KETOROLAC TROMETHAMINE 1 GTT BOTTLE BOTH EYES SCH ×3 (08:43→21:49)
[2022-11-10] MEDS ORDERED: FAMOTIDINE 20 MG TABLET PO SCH (09:00)
[2022-11-10] MEDS ORDERED: NITROGLYCERIN 0.4 MG TAB.SUBL SL PRN (09:20)
--- NOTE | 2022-11-10 09:25 | Internal Med Progress Note ---
SUBJECTIVE Subjective Patient information: Note initiated : 11/10/22 at 9:21 am Service Date, if different from initiated Date: [] Patient: Stephanie Schaffer a 76 y/o F admitted on 11/09/22 for fall. Chief Complaint: [] Interval history: Ms. Schaffer is a 76 year old F history of dementia, rectal prolapse, gout, essential hypertensions, dyslipidemia, AAA, presenting with fall at home. Following history is limited by the patient's mentations. It was reported patient had an episode of fall at home and EMS was called to send patient to our ED for further evaluations. Hip x-ray reviewed closed intertrochanteric fracture of the right hip. Labs still pending at the moment. Admission request was called for hip fracture needing surgical management. 11/10: s/p ORIF by Dr. De Leon on 11/09, tolerated the surgery well. Denies any right hip pain at the moment. No bowel movement after the surgery yet. Continue Aspirin BID for DVT ppx. Continue narcotics as needed for pain control. NWB on right lower extremity. Rest of post-surgical management as per orthopedic team. PT evaluation and treatment. Constitutional Vitals: Vital Signs Temp Pulse Resp BP Pulse Ox O2 Del Method O2 Flow Rate 37.0 C 81 18 126/60 91 2 11/10/22 07:16 11/10/22 07:16 11/10/22 07:16 11/10/22 07:16 11/10/22 07:16 11/10/22 07:16 11/10/22 03:38 Period Temp Pulse Resp BP Sys/Savage Pulse Ox O2 Del Method O2 Flow Rate Last 24 Hr 36.2 C-37.5 C 39-132 6-28 73-186/48-120 89-100 Nasal Cannula- Room Air 0-6 Intake and Output 11/09/22 11/10/22 11/10/22 19:59 03:59 11:59 Intake Total 1270 Output Total 675 Balance 595 Weight 34.927 kg 37.83 kg Intake & Output: Intake & Output 11/09/22 11/10/22 11/10/22 19:59 03:59 11:59 Intake Total 1270 Output Total 675 Balance 595 Weight 34.927 kg 37.83 kg Intake: IV 100 Oral 270 IV - Manual Only 900 Output: Void Amount 625 Estimated Blood Loss 50 Other: Urine Appearance Clear Urine Color Yellow Urine Odor Normal Head Head exam: Present atraumatic and normal inspection Eye Eye exam: Present normal appearance ENT ENT exam: Present mucous membranes moist, normal exam and normal external ear exam Neck Neck exam: Present normal inspection Respiratory Respiratory exam: Present normal respiratory exam Cardiovascular Cardiovascular exam: Present normal rate and rhythm GI/Abdominal GI/Abdominal exam: Present normal bowel sounds Extremities Exam Extremities exam: Present tenderness; Absent full ROM or normal inspection Additional comments: Right lateral hip covered by surgical dressing. Back Exam Back exam: Present normal inspection Neurological Exam Neurological exam: Present alert and oriented X3 Skin Skin exam: Present intact and warm OBJ DATA Labs CBC & Chem 7: 11/10/22 05:06 11/10/22 05:06 Labs: Abnormal Lab Results 11/10/22 11/10/22 11/09/22 05:06 05:06 18:23 WBC RBC 2.48 L Hgb 8.0 L Hct 25.7 L MCV 103.6 H Neut % (Auto) Lymph % (Auto) Lymph # (Auto) 1.03 L Absolute Neutrophils Carbon Dioxide 21 L BUN Creatinine Glucose AST Urine Protein 30 A Urine Ketones Trace A Urine Occult Blood Large A Urine RBC 8 H Urine Mucus Few A 11/09/22 11/09/22 15:52 15:52 WBC 11.4 H RBC 3.45 L Hgb Hct MCV 103.5 H Neut % (Auto) 84.0 H Lymph % (Auto) 8.7 L Lymph # (Auto) 0.99 L Absolute Neutrophils 9.59 H Carbon Dioxide BUN 32 H Creatinine 1.8 H Glucose 119 H AST 32 H Urine Protein Urine Ketones Urine Occult Blood Urine RBC Urine Mucus Meds: Medications Acetaminophen (Acetaminophen 325 Mg Tablet) 650 mg PO Q6HP PRN; Protocol PRN Reason: Per Pain Protocol/Fever > 101 Hydrocodone Bitart/Acetaminophen (Hydrocodone/Apap 5/325mg Tablet) 0 tab PO Q4HP PRN; Protocol PRN Reason: Per Pain Protocol Last Admin: 11/10/22 05:39 Dose: 1 tab Albuterol/Ipratropium (Ipratropium/Albuterol 3 Ml Ampul.Neb) 3 ml NEB Q4HRT PRN PRN Reason: Wheezing Allopurinol (Allopurinol 100 Mg Tablet) 100 mg PO QDAY [facility] Last Admin: 11/10/22 08:12 Dose: 100 mg Amlodipine Besylate (Amlodipine 5 Mg Tablet) 5 mg PO BID [facility] Last Admin: 11/10/22 08:11 Dose: 5 mg Aspirin (Aspirin 81 Mg Tab.Chew) 81 mg PO BID [facility] Last Admin: 11/10/22 08:12 Dose: 81 mg Bisacodyl (Bisacodyl 10 Mg Supp.Rect) 10 mg W[place] Q2-3DAYS PRN PRN Reason: Constipation Cefazolin Sodium (Cefazolin 1 Gm Vial) 1 gm IV Q8H [facility]; Protocol Stop: 11/10/22 11:01 Last Admin: 11/10/22 03:15 Dose: 1 gm Cyanocobalamin (Cyanocobalamin 1,000 Mcg/Ml Vial) 1,000 mcg IM QMONTH [facility] Docusate Sodium (Docusate Sodium 100 Mg Capsule) 100 mg PO BID [facility] Last Admin: 11/10/22 08:12 Dose: 100 mg Ezetimibe (Ezetimibe 10 Mg Tablet) 10 mg PO QDAY [facility] Last Admin: 11/10/22 08:11 Dose: 10 mg Famotidine (Famotidine 20 Mg Tablet) 10 mg PO QDAY [facility] Hydralazine HCl (Hydralazine 20 Mg/Ml Vial) 10 mg IV Q4-6HP PRN PRN Reason: Hypertension Sodium Chloride (Sodium Chloride 0.9%) 1,000 mls @ 100 mls/hr IV .Q10H [facility] Last Admin: 11/10/22 04:41 Dose: Not Given Ketorolac Tromethamine (Ketorolac Tromethamine 1 Gtt Bottle) 1 gtt BOTH EYES TID [facility] Last Admin: 11/10/22 08:43 Dose: Not Given Ketorolac Tromethamine (Ketorolac 30 Mg/Ml Vial) 30 mg IV Q6HP PRN; Protocol PRN Reason: Per Pain Protocol Stop: 11/11/22 16:46 Last Admin: 11/10/22 04:32 Dose: 30 mg Latanoprost (Latanoprost Ophth Drops 2.5ml Bottle) gtt OU QDAY [facility] Losartan Potassium (Losartan 50 Mg Tablet) 100 mg PO QDAY [facility] Last Admin: 11/10/22 08:12 Dose: 100 mg Magnesium Hydroxide (Magnesium Hydroxide 30 Ml Oral.Susp) 30 ml PO BIDP PRN PRN Reason: Constipation Metoprolol Succinate (Metoprolol Succinate 25 Mg Tab.Xl.24h) 25 mg PO QDAY [facility] Last Admin: 11/10/22 08:11 Dose: 25 mg Morphine Sulfate (Morphine 4 Mg/Ml Vial) 4 mg IV Q4HP PRN; Protocol PRN Reason: Per Pain Protocol Nitroglycerin (Nitroglycerin 0.4 Mg Tab.Subl) 0.4 mg SL Q5MIN PRN PRN Reason: Chest Pain Non-Formulary Medication (Ykgnnfh-Ilincczuprewj-Thniuysm [Excedrin Extra Strength]) 1 tab PO Q6H PRN PRN Reason: migraines Non-Formulary Medication (Calcium Carbonate [Calcium 600]) 1,200 mg PO QDAY [facility] Non-Formulary Medication (Cholecalciferol (Vitamin D3)) 1,250 mcg PO .2xwk [facility] Non-Formulary Medication (Diphenhydramine Hcl [Unisom Sleepgels]) 50 mg PO QHS PRN PRN Reason: sleep Non-Formulary Medication (Loteprednol Etabonate) 1 drp OPHTHALMIC QDAY [facility] Ondansetron HCl (Ondansetron 4 Mg/2 Ml Vial) 4 mg IV Q6HP PRN PRN Reason: Nausea And Vomiting Polyethylene Glycol (Polyethylene Glycol 3350 17 Gm Packet) 17 gm PO DAILYP PRN PRN Reason: Constipation Senna (Sennosides 1 Tablet) 2 tab PO HS [facility] Last Admin: 11/09/22 21:49 Dose: 2 tab Sodium Biphosphate/Sodium Phosphate (Fleets Adult Enema) 1 dose WV Q3-4DAYS PRN PRN Reason: Constipation Sodium Chloride (0.9 % Sodium Chloride 10 Ml Syringe) 10 ml IV Q8 [facility] Last Admin: 11/10/22 04:43 Dose: Not Given Trazodone HCl (Trazodone Hcl 50 Mg Tablet) 25 mg PO HSP PRN PRN Reason: Insomnia A/P Assessment and plan (1) Closed intertrochanteric fracture of right hip: Status: Acute (2) RP (rectal prolapse): Status: Acute (3) Abdominal aortic aneurysm: Status: Chronic Comment: Date Onset: Infrarenal AAA of 3 cm- need US in 2017 (4) Gout: Status: Chronic Comment: One flare of the gout in the past on low-dose allopurinol Qualifiers: Encounter type: sequela Chronicity: unspecified Laterality: unspecified laterality (5) Essential hypertension: Status: Chronic Comment: Goal blood pressure 130/80 given renal disease proteinuria and suprarenal AAA as well as carotid occlusive disease in the left side (6) Dyslipidemia: Status: Chronic (7) Dementia: Status: Acute Narrative A/P Narrative: Assessment and Plans: 1. Closed intertrochanteric fracture of right hip: Inpatient med surg s/p ORIF by Dr. De Leon on 11/09 Continue Aspirin BID for DVT ppx. Continue narcotics as needed for pain control. NWB on right lower extremity. Rest of post-surgical management as per orthopedic team. Physical therapy evaluation and treatment 2. h/o AAA: Repeat abdominal US 3. h/o essential HTN: Amlodipine Losartan Metoprolol Succinate 3. Mixed dyslipidemia: Zetia 4. Dementia: Continue to monitor 5. Rectal prolapse: Continue to monitor 6. Gout: Allopurinol GI ppx: PEPCID DVT pp: SCDs; Aspirin BID Code status: Full Prognosis: Stable Disposition: inpatient med surg; PT Time Spent With Patient Time: Total time spent is greater than 50% in coordination of care (as documented) at patient's floor/unit and/or counseling patient: Subsequent: Total time with patient: 35 - 49 minutes QUALITY Stroke Symptom Onset Unknown: No VTE Deep Vein Thrombosis/Pulmonary Embolism Present on Admission: No
[2022-11-10] MEDS ORDERED: diphenhydrAMINE 25 MG CAPSULE PO PRN (09:26)
[2022-11-10] MEDS ORDERED: ASPIRIN ACETAMINOPHEN CAFFEINE PO PRN (10:21)
--- NOTE | 2022-11-10 14:02 | Internal Med Progress Note ---
SUBJECTIVE Subjective Patient information: Note initiated : 11/10/22 at 1:59 pm Service Date, if different from initiated Date: [] Patient: Stephanie Schaffer a 76 y/o F admitted on 11/09/22 for fall. Chief Complaint: [] Interval history: Ms. Schaffer is a 76 year old F history of dementia, rectal prolapse, gout, essential hypertensions, dyslipidemia, AAA, presenting with fall at home. Following history is limited by the patient's mentations. It was reported patient had an episode of fall at home and EMS was called to send patient to our ED for further evaluations. Hip x-ray reviewed closed intertrochanteric fracture of the right hip. Labs still pending at the moment. Admission request was called for hip fracture needing surgical management. 11/10: s/p ORIF by Dr. De Leon on 11/09, tolerated the surgery well. Denies any right hip pain at the moment. No bowel movement after the surgery yet. Continue Aspirin BID for DVT ppx. Continue narcotics as needed for pain control. NWB on right lower extremity. Rest of post-surgical management as per orthopedic team. PT evaluation and treatment. Constitutional Vitals: Vital Signs Temp Pulse Resp BP Pulse Ox O2 Del Method O2 Flow Rate 98.6 F 94 H 18 118/56 95 1 11/10/22 12:00 11/10/22 12:00 11/10/22 12:00 11/10/22 12:00 11/10/22 12:00 11/10/22 12:00 11/10/22 12:00 Period Temp Pulse Resp BP Sys/Savage Pulse Ox O2 Del Method O2 Flow Rate Last 24 Hr 97.2 F-99.5 F 39-132 6-28 73-186/48-120 89-100 Nasal Cannula- Room Air 0-6 Intake and Output 11/10/22 11/10/22 11/10/22 03:59 11:59 19:59 Intake Total 1270 1000 Output Total 675 700 Balance 595 300 Weight 37.83 kg 37.83 kg Patient Weight 11/11/22 03:59 Weight 37.83 kg Intake & Output: Intake & Output 11/10/22 11/10/22 11/10/22 03:59 11:59 19:59 Intake Total 1270 1000 Output Total 675 700 Balance 595 300 Weight 37.83 kg 37.83 kg Intake: IV 100 1000 Sodium Chloride 0.9% 1,000 ml @ 1000 100 mls/hr IV .Q10H [facility] Rx#: [id number] Oral 270 IV - Manual Only 900 Output: Void Amount 625 700 Estimated Blood Loss 50 Other: Meal Breakfast Lunch Percent of Meal Consumed 100% 75% Feeding Ability Independent Urine Appearance Clear Clear Urine Color Yellow Yellow Pale Urine Odor Normal Normal Exam: General: Alert, Awake, No acute Distress Eyes/N/T: EOMI, Head/Neck: neck supple, CV: RRR, No murmurs, Pulm: Clear b/l, no wheezing/rhonchi/rales Abd: soft, nontender, +BS x4 Ext: no clubbing/cyanosis/edema, Right lateral hip covered by surgical dressing. Neuro: Alert, no focal deficits, moves all extremities, Skin: warm/dry OBJ DATA Labs CBC & Chem 7: 11/10/22 05:06 11/10/22 05:06 Labs: Abnormal Lab Results 11/10/22 11/10/22 11/09/22 05:06 05:06 18:23 WBC RBC 2.48 L Hgb 8.0 L Hct 25.7 L MCV 103.6 H Neut % (Auto) Lymph % (Auto) Lymph # (Auto) 1.03 L Absolute Neutrophils Carbon Dioxide 21 L BUN Creatinine Glucose AST Urine Protein 30 A Urine Ketones Trace A Urine Occult Blood Large A Urine RBC 8 H Urine Mucus Few A 11/09/22 11/09/22 15:52 15:52 WBC 11.4 H RBC 3.45 L Hgb Hct MCV 103.5 H Neut % (Auto) 84.0 H Lymph % (Auto) 8.7 L Lymph # (Auto) 0.99 L Absolute Neutrophils 9.59 H Carbon Dioxide BUN 32 H Creatinine 1.8 H Glucose 119 H AST 32 H Urine Protein Urine Ketones Urine Occult Blood Urine RBC Urine Mucus Meds: Medications Acetaminophen (Acetaminophen 325 Mg Tablet) 650 mg PO Q6HP PRN; Protocol PRN Reason: Per Pain Protocol/Fever > 101 Hydrocodone Bitart/Acetaminophen (Hydrocodone/Apap 5/325mg Tablet) 0 tab PO Q4HP PRN; Protocol PRN Reason: Per Pain Protocol Last Admin: 11/10/22 12:06 Dose: 1 tab Albuterol/Ipratropium (Ipratropium/Albuterol 3 Ml Ampul.Neb) 3 ml NEB Q4HRT PRN PRN Reason: Wheezing Allopurinol (Allopurinol 100 Mg Tablet) 100 mg PO QDAY [facility] Last Admin: 11/10/22 08:12 Dose: 100 mg Amlodipine Besylate (Amlodipine 5 Mg Tablet) 5 mg PO BID [facility] Last Admin: 11/10/22 08:11 Dose: 5 mg Aspirin (Aspirin 81 Mg Tab.Chew) 81 mg PO BID [facility] Last Admin: 11/10/22 08:12 Dose: 81 mg Bisacodyl (Bisacodyl 10 Mg Supp.Rect) 10 mg NM Q2-3DAYS PRN PRN Reason: Constipation Calcium Carbonate/Glycine (Calcium (Oyster Shell) 500 Mg Tablet) 1,000 mg PO QDAY [facility] Cyanocobalamin (Cyanocobalamin 1,000 Mcg/Ml Vial) 1,000 mcg IM QMONTH [facility] Diphenhydramine HCl (Diphenhydramine 25 Mg Capsule) 50 mg PO HSP PRN PRN Reason: sleep Docusate Sodium (Docusate Sodium 100 Mg Capsule) 100 mg PO BID [facility] Last Admin: 11/10/22 08:12 Dose: 100 mg Ezetimibe (Ezetimibe 10 Mg Tablet) 10 mg PO QDAY [facility] Last Admin: 11/10/22 08:11 Dose: 10 mg Famotidine (Famotidine 20 Mg Tablet) 10 mg PO QDAY [facility] Hydralazine HCl (Hydralazine 20 Mg/Ml Vial) 10 mg IV Q4-6HP PRN PRN Reason: Hypertension Sodium Chloride (Sodium Chloride 0.9%) 1,000 mls @ 100 mls/hr IV .Q10H [facility] Last Admin: 11/10/22 09:22 Dose: 100 mls/hr Ketorolac Tromethamine (Ketorolac Tromethamine 1 Gtt Bottle) 1 gtt BOTH EYES TID [facility] Last Admin: 11/10/22 08:43 Dose: Not Given Ketorolac Tromethamine (Ketorolac 30 Mg/Ml Vial) 30 mg IV Q6HP PRN; Protocol PRN Reason: Per Pain Protocol Stop: 11/11/22 16:46 Last Admin: 11/10/22 12:05 Dose: 30 mg Latanoprost (Latanoprost Ophth Drops 2.5ml Bottle) 1 gtt OU QDAY [facility] Losartan Potassium (Losartan 50 Mg Tablet) 100 mg PO QDAY [facility] Last Admin: 11/10/22 08:12 Dose: 100 mg Magnesium Hydroxide (Magnesium Hydroxide 30 Ml Oral.Susp) 30 ml PO BIDP PRN PRN Reason: Constipation Metoprolol Succinate (Metoprolol Succinate 25 Mg Tab.Xl.24h) 25 mg PO QDAY [facility] Last Admin: 11/10/22 08:11 Dose: 25 mg Morphine Sulfate (Morphine 4 Mg/Ml Vial) 4 mg IV Q4HP PRN; Protocol PRN Reason: Per Pain Protocol Nitroglycerin (Nitroglycerin 0.4 Mg Tab.Subl) 0.4 mg SL Q5MIN PRN PRN Reason: Chest Pain Non-Formulary Medication (Cholecalciferol (Vitamin D3)) 1,250 mcg PO .2xwk [facility] Ondansetron HCl (Ondansetron 4 Mg/2 Ml Vial) 4 mg IV Q6HP PRN PRN Reason: Nausea And Vomiting Aspirin- Acetaminophen- Caffeine [Excedrin Extra St] 1 dose PO Q6H PRN PRN Reason: migraines Loteprednol Etabonate 0.5 % Drops,Suspension 1 dose OP QDAY [facility] Polyethylene Glycol (Polyethylene Glycol 3350 17 Gm Packet) 17 gm PO DAILYP PRN PRN Reason: Constipation Senna (Sennosides 1 Tablet) 2 tab PO HS [facility] Last Admin: 11/09/22 21:49 Dose: 2 tab Sodium Biphosphate/Sodium Phosphate (Fleets Adult Enema) 1 dose NM Q3-4DAYS PRN PRN Reason: Constipation Sodium Chloride (0.9 % Sodium Chloride 10 Ml Syringe) 10 ml IV Q8 [facility] Last Admin: 11/10/22 04:43 Dose: Not Given Trazodone HCl (Trazodone Hcl 50 Mg Tablet) 25 mg PO HSP PRN PRN Reason: Insomnia A/P Narrative A/P Narrative: Assessment and Plans: *Closed intertrochanteric fracture of right hip: s/p ORIF by Dr. De Leon on 11/09 -Continue Aspirin BID for DVT ppx per Ortho -Continue narcotics as needed for pain control -NWB on right lower extremity. Rest of post-surgical management as per orthopedic team. -Physical therapy evaluation and treatment *h/o AAA: Repeat abdominal US *h/o essential HTN: -Amlodipine, Losartan , Metoprolol Succinate * Mixed dyslipidemia: Zetia *Dementia: Continue to monitor *Rectal prolapse: Continue to monitor *Gout: Allopurinol *ppx: SCDs; Aspirin BID, pepcid Code status: [employer] Worker Spent With Patient Time: Total time spent is greater than 50% in coordination of care (as documented) at patient's floor/unit and/or counseling patient: QUALITY Stroke Symptom Onset Unknown: No VTE Deep Vein Thrombosis/Pulmonary Embolism Present on Admission: No
--- NOTE | 2022-11-10 17:25 | EKG ---
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 Measurements Intervals [place] Rate: 96 P: 82 RI: 121 QRS: 36 QRSD: 75 T: 10 QT: 353 QTc: 447 Interpretive Statements Sinus rhythm Short RI interval LVH with secondary repolarization abnormality Electronically Signed On 11-10-2022 17:24:59 PST by Latanya Ng D.O. /store/[id number]
[2022-11-10] MEDS: SENNOSIDES 1 TABLET PO SCH (21:46)
[2022-11-11] MEDS: 0.9 % SODIUM CHLORIDE 10 ML SYRINGE IV SCH ×3 (05:54→20:29)
--- NOTE | 2022-11-11 07:25 | Orthopedic Progress Note ---
SUBJECTIVE Subjective Patient information: Note initiated : 11/11/22 at 7:21 am Service Date, if different from initiated Date: [] Patient: Stephanie Schaffer 76 y/o F admitted on 11/09/22 for fall. Chief Complaint: [S/p ORIF of right hip fx] Patient is doing well and has no complaints. She denies any calf tenderness. Constitutional Vitals: Vital Signs Temp Pulse Resp BP Pulse Ox O2 Del Method O2 Flow Rate 98.2 F 82 16 127/57 98 1 11/11/22 04:47 11/11/22 04:47 11/11/22 04:47 11/11/22 04:47 11/11/22 04:47 11/11/22 04:47 11/10/22 16:30 Period Temp Pulse Resp BP Sys/Savage Pulse Ox O2 Del Method O2 Flow Rate Last 24 Hr 98.2 F-98.7 F 78-102 14-18 118-145/56-67 93-98 Nasal Cannula- Room Air 1-1 Intake and Output 11/10/22 11/11/22 11/11/22 19:59 03:59 11:59 Intake Total 538 240 100 Output Total 1150 250 Balance 538 -910 -150 Weight 86 lb 11.2 oz Intake & Output: Intake & Output 11/10/22 11/11/22 11/11/22 19:59 03:59 11:59 Intake Total 538 240 100 Output Total 1150 250 Balance 538 -910 -150 Weight 86 lb 11.2 oz Intake: IV 538 0 Sodium Chloride 0.9% 1,000 ml @ 538 0 100 mls/hr IV .Q10H [facility] Rx#: [id number] Oral 240 100 Output: Void Amount 1150 250 Other: Meal Dinner Nourishment/Supplement Percent of Meal Consumed 75% 100% Feeding Ability Independent Independent Urine Appearance Clear Clear Urine Color Yellow Yellow Urine Odor Normal Stool Size Large Large Stool Color Brown Brown Stool Consistency Soft Soft Formed # Voids 1 # Bowel Movements 1 General appearance: average body habitus and no acute distress Head Head exam: Present atraumatic and normocephalic Extremities Exam Extremities exam: Present calf tenderness (negative bilaterally), tenderness (lateral hip), Cj's sign (negative bilaterally) and Foot pink and warm Additional comments: Right lateral hip surgical dressing is clean, dry, and intact. Neurological Exam Neurological exam: Present oriented X3 Psychiatric Psychiatric exam: Present normal affect and normal mood OBJ DATA Labs CBC & Chem 7: 11/10/22 05:06 11/10/22 05:06 Labs: Abnormal Lab Results 11/10/22 11/10/22 11/09/22 05:06 05:06 18:23 WBC RBC 2.48 L Hgb 8.0 L Hct 25.7 L MCV 103.6 H Neut % (Auto) Lymph % (Auto) Lymph # (Auto) 1.03 L Absolute Neutrophils Carbon Dioxide 21 L BUN Creatinine Glucose AST Urine Protein 30 A Urine Ketones Trace A Urine Occult Blood Large A Urine RBC 8 H Urine Mucus Few A 11/09/22 11/09/22 15:52 15:52 WBC 11.4 H RBC 3.45 L Hgb Hct MCV 103.5 H Neut % (Auto) 84.0 H Lymph % (Auto) 8.7 L Lymph # (Auto) 0.99 L Absolute Neutrophils 9.59 H Carbon Dioxide BUN 32 H Creatinine 1.8 H Glucose 119 H AST 32 H Urine Protein Urine Ketones Urine Occult Blood Urine RBC Urine Mucus Meds: Medications Acetaminophen (Acetaminophen 325 Mg Tablet) 650 mg PO Q6HP PRN; Protocol PRN Reason: Per Pain Protocol/Fever > 101 Hydrocodone Bitart/Acetaminophen (Hydrocodone/Apap 5/325mg Tablet) 0 tab PO Q4HP PRN; Protocol PRN Reason: Per Pain Protocol Last Admin: 11/10/22 21:47 Dose: 1 tab Albuterol/Ipratropium (Ipratropium/Albuterol 3 Ml Ampul.Neb) 3 ml NEB Q4HRT PRN PRN Reason: Wheezing Allopurinol (Allopurinol 100 Mg Tablet) 100 mg PO QDAY [facility] Last Admin: 11/10/22 08:12 Dose: 100 mg Amlodipine Besylate (Amlodipine 5 Mg Tablet) 5 mg PO BID [facility] Last Admin: 11/10/22 21:46 Dose: 5 mg Aspirin (Aspirin 81 Mg Tab.Chew) 81 mg PO BID [facility] Last Admin: 11/10/22 21:46 Dose: 81 mg Bisacodyl (Bisacodyl 10 Mg Supp.Rect) 10 mg PA Q2-3DAYS PRN PRN Reason: Constipation Calcium Carbonate/Glycine (Calcium (Oyster Shell) 500 Mg Tablet) 1,000 mg PO QDAY [facility] Cyanocobalamin (Cyanocobalamin 1,000 Mcg/Ml Vial) 1,000 mcg IM QMONTH [facility] Diphenhydramine HCl (Diphenhydramine 25 Mg Capsule) 50 mg PO HSP PRN PRN Reason: sleep Docusate Sodium (Docusate Sodium 100 Mg Capsule) 100 mg PO BID [facility] Last Admin: 11/10/22 21:46 Dose: 100 mg Ezetimibe (Ezetimibe 10 Mg Tablet) 10 mg PO QDAY [facility] Last Admin: 11/10/22 08:11 Dose: 10 mg Famotidine (Famotidine 20 Mg Tablet) 10 mg PO QDAY [facility] Hydralazine HCl (Hydralazine 20 Mg/Ml Vial) 10 mg IV Q4-6HP PRN PRN Reason: Hypertension Ketorolac Tromethamine (Ketorolac Tromethamine 1 Gtt Bottle) 1 gtt BOTH EYES TID [facility] Last Admin: 11/10/22 21:49 Dose: Not Given Ketorolac Tromethamine (Ketorolac 30 Mg/Ml Vial) 30 mg IV Q6HP PRN; Protocol PRN Reason: Per Pain Protocol Stop: 11/11/22 16:46 Last Admin: 11/10/22 21:47 Dose: 30 mg Latanoprost (Latanoprost Ophth Drops 2.5ml Bottle) 1 gtt OU QDAY [facility] Losartan Potassium (Losartan 50 Mg Tablet) 100 mg PO QDAY [facility] Last Admin: 11/10/22 08:12 Dose: 100 mg Magnesium Hydroxide (Magnesium Hydroxide 30 Ml Oral.Susp) 30 ml PO BIDP PRN PRN Reason: Constipation Metoprolol Succinate (Metoprolol Succinate 25 Mg Tab.Xl.24h) 25 mg PO QDAY [facility] Last Admin: 11/10/22 08:11 Dose: 25 mg Morphine Sulfate (Morphine 4 Mg/Ml Vial) 4 mg IV Q4HP PRN; Protocol PRN Reason: Per Pain Protocol Nitroglycerin (Nitroglycerin 0.4 Mg Tab.Subl) 0.4 mg SL Q5MIN PRN PRN Reason: Chest Pain Ondansetron HCl (Ondansetron 4 Mg/2 Ml Vial) 4 mg IV Q6HP PRN PRN Reason: Nausea And Vomiting Aspirin- Acetaminophen- Caffeine [Excedrin Extra St] 1 dose PO Q6H PRN PRN Reason: migraines Loteprednol Etabonate 0.5 % Drops,Suspension 1 dose OP QDAY [facility] Polyethylene Glycol (Polyethylene Glycol 3350 17 Gm Packet) 17 gm PO DAILYP PRN PRN Reason: Constipation Senna (Sennosides 1 Tablet) 2 tab PO HS [facility] Last Admin: 11/10/22 21:46 Dose: 2 tab Sodium Biphosphate/Sodium Phosphate (Fleets Adult Enema) 1 dose PA Q3-4DAYS PRN PRN Reason: Constipation Sodium Chloride (0.9 % Sodium Chloride 10 Ml Syringe) 10 ml IV Q8 [facility] Last Admin: 11/11/22 05:54 Dose: Not Given Trazodone HCl (Trazodone Hcl 50 Mg Tablet) 25 mg PO HSP PRN PRN Reason: Insomnia Vitamin D (Vitamin D3 125 Mcg Tablet) 125 mcg PO TuSa [facility] A/P Assessment and plan (1) Closed intertrochanteric fracture of right hip: Assessment and plan: Likely discharge to SNF tomorrow. Mobilize with PT/OT today. Follow-up with [facility] in 2 weeks. Status: Acute Time Spent With Patient Time: Total time spent is greater than 50% in coordination of care (as documented) at patient's floor/unit and/or counseling patient:
[2022-11-11] MEDS: CALCIUM (OYSTER SHELL) 500 MG TABLET PO SCH (08:50)
[2022-11-11] MEDS: ASPIRIN 81 MG TAB.CHEW PO SCH ×2 (08:50→20:29)
[2022-11-11] MEDS: METOPROLOL SUCCINATE 25 MG TAB.XL.24H PO SCH (08:50)
[2022-11-11] MEDS: amLODIPine 5 MG TABLET PO SCH ×2 (08:50→20:28)
[2022-11-11] MEDS: EZETIMIBE 10 MG TABLET PO SCH (08:50)
[2022-11-11] MEDS: FAMOTIDINE 20 MG TABLET PO SCH (08:50)
[2022-11-11] MEDS: ALLOPURINOL 100 MG TABLET PO SCH (08:50)
[2022-11-11] MEDS: DOCUSATE SODIUM 100 MG CAPSULE PO SCH ×2 (08:51→20:28)
[2022-11-11] MEDS: LOSARTAN 50 MG TABLET PO SCH (08:51)
[2022-11-11] MEDS: LOTEPREDNOL ETABONATE 0.5% OP SCH (08:52)
[2022-11-11] MEDS: LATANOPROST OPHTH DROPS 2.5ML BOTTLE OU SCH (08:52)
[2022-11-11] MEDS: KETOROLAC TROMETHAMINE 1 GTT BOTTLE BOTH EYES SCH ×3 (08:55→20:29)
[2022-11-11] MEDS ORDERED: VITAMIN D3 125 MCG TABLET PO SCH (09:00)
--- NOTE | 2022-11-11 09:13 | Internal Med Progress Note ---
SUBJECTIVE Subjective Patient information: Note initiated : 11/11/22 at 9:11 am Service Date, if different from initiated Date: [] Patient: Stephanie Schaffer a 76 y/o F admitted on 11/09/22 for fall. Chief Complaint: [] Interval history: Ms. Schaffer is a 76 year old F history of dementia, rectal prolapse, gout, essential hypertensions, dyslipidemia, AAA, presenting with fall at home. Following history is limited by the patient's mentations. It was reported patient had an episode of fall at home and EMS was called to send patient to our ED for further evaluations. Hip x-ray reviewed closed intertrochanteric fracture of the right hip. Labs still pending at the moment. Admission request was called for hip fracture needing surgical management. 11/10: s/p ORIF by Dr. De Leon on 11/09, tolerated the surgery well. Denies any right hip pain at the moment. No bowel movement after the surgery yet. Continue Aspirin BID for DVT ppx. Continue narcotics as needed for pain control. NWB on right lower extremity. Rest of post-surgical management as per orthopedic team. PT evaluation and treatment. 11/11 Poor sleep but otherwise feeling okay. No overnight event or new complaints. Postop anemia with hemoglobin 8.0 yesterday. Repeat today is pending. Review of Systems: denies headache/fever/chills/nausea/vomiting/chest or abdominal pain/cou gh/dyspnea/diarrhea. Otherwise see above. Constitutional Vitals: Vital Signs Temp Pulse Resp BP Pulse Ox O2 Del Method O2 Flow Rate 98.4 F 107 H 16 127/73 95 1 11/11/22 08:00 11/11/22 08:00 11/11/22 08:00 11/11/22 08:00 11/11/22 08:00 11/11/22 08:00 11/10/22 16:30 Period Temp Pulse Resp BP Sys/Savage Pulse Ox O2 Del Method O2 Flow Rate Last 24 Hr 98.2 F-98.7 F 78-107 14-18 118-145/56-73 93-98 Nasal Cannula- Room Air 1-1 Intake and Output 11/10/22 11/11/22 11/11/22 19:59 03:59 11:59 Intake Total 538 240 100 Output Total 1150 425 Balance 538 -910 -325 Weight 39.326 kg Intake & Output: Intake & Output 11/10/22 11/11/22 11/11/22 19:59 03:59 11:59 Intake Total 538 240 100 Output Total 1150 425 Balance 538 -670 -720 Weight 39.326 kg Intake: IV 538 0 Sodium Chloride 0.9% 1,000 ml @ 538 0 100 mls/hr IV .Q10H [facility] Rx#: [id number] Oral 240 100 Output: Void Amount 1150 425 Other: Meal Dinner Nourishment/Supplement Percent of Meal Consumed 75% 100% Feeding Ability Independent Independent Urine Appearance Clear Clear Urine Color Yellow Yellow Urine Odor Normal Normal Stool Size Large Large Stool Color Brown Brown Stool Consistency Soft Soft Formed # Voids 1 # Bowel Movements 1 Exam: General: Alert, Awake, No acute Distress Eyes/N/T: EOMI, Head/Neck: neck supple, CV: RRR, 3/6SM, Pulm: Clear b/l, no wheezing/rhonchi/rales Abd: soft, nontender, +BS x4 Ext: no clubbing/cyanosis/edema, Right lateral hip covered by surgical dressing. Neuro: Alert, no focal deficits, moves all extremities, Skin: warm/dry OBJ DATA Labs CBC & Chem 7: 11/10/22 05:06 11/10/22 05:06 Labs: Abnormal Lab Results 11/10/22 11/10/22 11/09/22 05:06 05:06 18:23 WBC RBC 2.48 L Hgb 8.0 L Hct 25.7 L MCV 103.6 H Neut % (Auto) Lymph % (Auto) Lymph # (Auto) 1.03 L Absolute Neutrophils Carbon Dioxide 21 L BUN Creatinine Glucose AST Urine Protein 30 A Urine Ketones Trace A Urine Occult Blood Large A Urine RBC 8 H Urine Mucus Few A 11/09/22 11/09/22 15:52 15:52 WBC 11.4 H RBC 3.45 L Hgb Hct MCV 103.5 H Neut % (Auto) 84.0 H Lymph % (Auto) 8.7 L Lymph # (Auto) 0.99 L Absolute Neutrophils 9.59 H Carbon Dioxide BUN 32 H Creatinine 1.8 H Glucose 119 H AST 32 H Urine Protein Urine Ketones Urine Occult Blood Urine RBC Urine Mucus Meds: Medications Acetaminophen (Acetaminophen 325 Mg Tablet) 650 mg PO Q6HP PRN; Protocol PRN Reason: Per Pain Protocol/Fever > 101 Last Admin: 11/11/22 08:51 Dose: 650 mg Hydrocodone Bitart/Acetaminophen (Hydrocodone/Apap 5/325mg Tablet) 0 tab PO Q4HP PRN; Protocol PRN Reason: Per Pain Protocol Last Admin: 11/10/22 21:47 Dose: 1 tab Albuterol/Ipratropium (Ipratropium/Albuterol 3 Ml Ampul.Neb) 3 ml NEB Q4HRT PRN PRN Reason: Wheezing Allopurinol (Allopurinol 100 Mg Tablet) 100 mg PO QDAY [facility] Last Admin: 11/11/22 08:50 Dose: 100 mg Amlodipine Besylate (Amlodipine 5 Mg Tablet) 5 mg PO BID [facility] Last Admin: 11/11/22 08:50 Dose: 5 mg Aspirin (Aspirin 81 Mg Tab.Chew) 81 mg PO BID [facility] Last Admin: 11/11/22 08:50 Dose: 81 mg Bisacodyl (Bisacodyl 10 Mg Supp.Rect) 10 mg [place] Q2-3DAYS PRN PRN Reason: Constipation Calcium Carbonate/Glycine (Calcium (Oyster Shell) 500 Mg Tablet) 1,000 mg PO QDAY [facility] Last Admin: 11/11/22 08:50 Dose: 1,000 mg Cyanocobalamin (Cyanocobalamin 1,000 Mcg/Ml Vial) 1,000 mcg IM QMONTH [facility] Diphenhydramine HCl (Diphenhydramine 25 Mg Capsule) 50 mg PO HSP PRN PRN Reason: sleep Docusate Sodium (Docusate Sodium 100 Mg Capsule) 100 mg PO BID [facility] Last Admin: 11/11/22 08:51 Dose: 100 mg Ezetimibe (Ezetimibe 10 Mg Tablet) 10 mg PO QDAY [facility] Last Admin: 11/11/22 08:50 Dose: 10 mg Famotidine (Famotidine 20 Mg Tablet) 10 mg PO QDAY [facility] Last Admin: 11/11/22 08:50 Dose: 10 mg Hydralazine HCl (Hydralazine 20 Mg/Ml Vial) 10 mg IV Q4-6HP PRN PRN Reason: Hypertension Ketorolac Tromethamine (Ketorolac Tromethamine 1 Gtt Bottle) 1 gtt BOTH EYES TID [facility] Last Admin: 11/11/22 08:55 Dose: Not Given Ketorolac Tromethamine (Ketorolac 30 Mg/Ml Vial) 30 mg IV Q6HP PRN; Protocol PRN Reason: Per Pain Protocol Stop: 11/11/22 16:46 Last Admin: 11/10/22 21:47 Dose: 30 mg Latanoprost (Latanoprost Ophth Drops 2.5ml Bottle) 1 gtt OU QDAY [facility] Last Admin: 11/11/22 08:52 Dose: Not Given Losartan Potassium (Losartan 50 Mg Tablet) 100 mg PO QDAY [facility] Last Admin: 11/11/22 08:51 Dose: 100 mg Magnesium Hydroxide (Magnesium Hydroxide 30 Ml Oral.Susp) 30 ml PO BIDP PRN PRN Reason: Constipation Metoprolol Succinate (Metoprolol Succinate 25 Mg Tab.Xl.24h) 25 mg PO QDAY [facility] Last Admin: 11/11/22 08:50 Dose: 25 mg Morphine Sulfate (Morphine 4 Mg/Ml Vial) 4 mg IV Q4HP PRN; Protocol PRN Reason: Per Pain Protocol Nitroglycerin (Nitroglycerin 0.4 Mg Tab.Subl) 0.4 mg SL Q5MIN PRN PRN Reason: Chest Pain Ondansetron HCl (Ondansetron 4 Mg/2 Ml Vial) 4 mg IV Q6HP PRN PRN Reason: Nausea And Vomiting Aspirin- Acetaminophen- Caffeine [Excedrin Extra St] 1 dose PO Q6H PRN PRN Reason: migraines Loteprednol Etabonate 0.5 % Drops,Suspension 1 dose OP QDAY [facility] Last Admin: 11/11/22 08:52 Dose: Not Given Polyethylene Glycol (Polyethylene Glycol 3350 17 Gm Packet) 17 gm PO DAILYP PRN PRN Reason: Constipation Senna (Sennosides 1 Tablet) 2 tab PO HS [facility] Last Admin: 11/10/22 21:46 Dose: 2 tab Sodium Biphosphate/Sodium Phosphate (Fleets Adult Enema) 1 dose [place] Q3-4DAYS PRN PRN Reason: Constipation Sodium Chloride (0.9 % Sodium Chloride 10 Ml Syringe) 10 ml IV Q8 [facility] Last Admin: 11/11/22 05:54 Dose: Not Given Trazodone HCl (Trazodone Hcl 50 Mg Tablet) 25 mg PO HSP PRN PRN Reason: Insomnia Vitamin D (Vitamin D3 125 Mcg Tablet) 125 mcg PO [facility] A/P Narrative A/P Narrative: Assessment and Plans: *Closed intertrochanteric fracture of right hip: s/p ORIF by Dr. De Leon on 11/09 -Continue Aspirin BID for DVT ppx per Ortho -Continue narcotics as needed for pain control -NWB on right lower extremity. Rest of post-surgical management as per orthopedic team. -Physical therapy evaluation and treatment *Anemia: monitor H&H *h/o AAA: Repeat abdominal US no change since previous comparison *h/o essential HTN: -Amlodipine, Losartan , Metoprolol Succinate *Mixed dyslipidemia: Zetia *Dementia: Continue to monitor *Rectal prolapse: Continue to monitor *Gout: Allopurinol *ppx: SCDs; Aspirin BID, pepcid Code status: Care Transport Nurse Spent With Patient Time: Total time spent is greater than 50% in coordination of care (as documented) at patient's floor/unit and/or counseling patient: Subsequent: Total time with patient: 35 - 49 minutes QUALITY Stroke Symptom Onset Unknown: No VTE Deep Vein Thrombosis/Pulmonary Embolism Present on Admission: No
[2022-11-11 10:48] LABS: Hematocrit 29.9 % (34.1-44.9)
[2022-11-11] MEDS: KETOROLAC 30 MG/ML VIAL IV PRN (10:57)
[2022-11-11] MEDS: HYDROcodone/APAP 5/325MG TABLET PO PRN ×3 (12:54→23:43)
--- NOTE | 2022-11-11 13:55 | Discharge Summary ---
Discharge Provider Provider IMPORTANT FOLLOW-UP INFORMATION FOR PCP: Patient information: Note initiated : 11/11/22 at 1:54 pm Service Date, if different from initiated Date: [] Patient: Stephanie Schaffer 76 y/o F admitted on 11/09/22 for fall. Chief Complaint: [] Date of admission: 11/09/22 21:15 Discharge date: 11/12/22 Primary care physician: Halle Feng Consults: 11/09/22 15:52 Consult to Physician [CONS] Stat Comment: Consulting Provider: Javier De Leon Reason For Exam: Physician to Consult Consult to Physician [CONS] Stat Comment: Consulting Provider: Salvador Ma Reason For Exam: Physician to Consult COURSE Hospital Course Hospital course: nterval history: Ms. Schaffer is a 76 year old F history of dementia, rectal prolapse, gout, essential hypertensions, dyslipidemia, AAA, presenting with fall at home. Following history is limited by the patient's mentations. It was reported patient had an episode of fall at home and EMS was called to send patient to our ED for further evaluations. Hip x-ray reviewed closed intertrochanteric fracture of the right hip. Labs still pending at the moment. Admission request was called for hip fracture needing surgical management. 11/10: s/p ORIF by Dr. De Leon on 11/09, tolerated the surgery well. Denies any right hip pain at the moment. No bowel movement after the surgery yet. Continue Aspirin BID for DVT ppx. Continue narcotics as needed for pain control. NWB on right lower extremity. Rest of post-surgical management as per orthopedic team. PT evaluation and treatment. 11/11 Poor sleep but otherwise feeling okay. No overnight event or new complaints. Postop anemia with hemoglobin 8.0 yesterday. Repeat today is pending. 11/12 Patient doing well. Feeling well and stable for discharge. Assessment and Plans: *Closed intertrochanteric fracture of right hip: s/p ORIF by Dr. De Leon on 11/09 -Continue Aspirin BID for DVT ppx per Ortho -pt/ot *Anemia: monitor H&H *h/o AAA: Repeat abdominal US no change since previous comparison *h/o essential HTN: *Mixed dyslipidemia: Zetia *Dementia: Continue to monitor *Rectal prolapse: Continue to monitor *Gout: Allopurinol Discharge diagnosis: right hip fracture, anemia Secondary discharge diagnosis: AAA hypertension dyslipidemia dementia Time Spent with Patient Time attestation: Total time spent providing and/or coordinating discharge services: Time spent: Greater than 30 minutes EXAM Constitutional Vitals: Temp Pulse Resp BP Pulse Ox O2 Del Method O2 Flow Rate 97.5 F 94 H 14 140/95 98 1 11/11/22 12:00 11/11/22 12:00 11/11/22 12:00 11/11/22 12:00 11/11/22 12:00 11/11/22 12:00 11/10/22 16:30 Discharge Data Data Completed and Pending Labs on day of discharge: Labs from last 24 hours 11/11/22 09:30 Hgb 9.0 L Hct 29.9 L Discharge Plan Patient/Caregiver Discharge Instructions Activity: as instructed Diet: Regular Diet Activity Restrictions/Additional Instructions: TTWB on RLE. Prescriptions: New Aspirin 81 mg PO BID 30 Days Qty: 60 0RF hydrocodone-acetaminophen 5-325 mg Tablet 1 - 2 tab PO Q4HP PRN (Reason: Per Pain Protocol) Qty: 50 0RF Continued ezetimibe [Zetia] 10 mg tablet 10 mg PO QDAY Qty: 90 4RF allopurinol 100 mg tablet 100 mg PO QDAY Qty: 30 12RF cyanocobalamin (vitamin B-12) 1,000 mcg/mL solution 1,000 mcg IM QMONTH nitroglycerin 0.4 mg tablet, sublingual 0.4 mg SUBLINGUAL Q5MIN PRN (Reason: Chest Pain) metoprolol succinate 25 mg tablet extended release 24 hr 25 mg PO QDAY famotidine 20 mg tablet 40 mg PO QDAY amlodipine 5 mg tablet 5 mg PO BID losartan 100 mg tablet 100 mg PO QDAY calcium carbonate [Calcium 600] 600 mg calcium (1,500 mg) tablet 1,200 mg PO QDAY cholecalciferol (vitamin D3) 1,250 mcg (50,000 unit) capsule 1,250 mcg PO .2xwk Excedrin Extra Strength 250-250-65 mg tablet 1 tab PO Q6H PRN (Reason: migraines) diphenhydramine HCl [[employer]is[employer] SleepGels] 50 mg capsule 50 mg PO QHS PRN (Reason: sleep) latanoprost 0.005 % drops 1 drp ophthalmic (eye) QDAY ketorolac 0.5 % drops 1 drp ophthalmic (eye) TID loteprednol etabonate 0.5 % drops,suspension 1 drp ophthalmic (eye) QDAY Discontinued hydrocodone-acetaminophen 5-325 mg tablet 1 tab PO TID PRN (Reason: Pain) Rx Instructions: 7.5 mg -325 mg Follow Up Plan Follow up with: Halle Feng DNP, C[employer]ELOP[employer]INE[employer] [Primary Care Provider] - Javier De Leon MD [Physician] - Patient Disposition: Xfer SNF Prognosis: Fair Rehab Potential: Good I certify that the patient requires SNF services: Yes Overall status at discharge: patient is not back to baseline Discharge Orders: Discharge Order (Routine); Ordered 11/11/22 Ordered By: Sid RODRIGUEZ VTE Deep Vein Thrombosis/Pulmonary Embolism Present on Admission: No
[2022-11-11] MEDS: SENNOSIDES 1 TABLET PO SCH (20:28)
[2022-11-12] MEDS: HYDROcodone/APAP 5/325MG TABLET PO PRN ×2 (04:15→11:41)
[2022-11-12] MEDS: 0.9 % SODIUM CHLORIDE 10 ML SYRINGE IV SCH ×2 (05:50→08:06)
[2022-11-12] MEDS: LOSARTAN 50 MG TABLET PO SCH (09:44)
[2022-11-12] MEDS: ASPIRIN 81 MG TAB.CHEW PO SCH (09:44)
[2022-11-12] MEDS: DOCUSATE SODIUM 100 MG CAPSULE PO SCH (09:45)
[2022-11-12] MEDS: CALCIUM (OYSTER SHELL) 500 MG TABLET PO SCH (09:45)
[2022-11-12] MEDS: ALLOPURINOL 100 MG TABLET PO SCH (09:45)
[2022-11-12] MEDS: amLODIPine 5 MG TABLET PO SCH (09:45)
[2022-11-12] MEDS: FAMOTIDINE 20 MG TABLET PO SCH (09:46)
[2022-11-12] MEDS: METOPROLOL SUCCINATE 25 MG TAB.XL.24H PO SCH (09:46)
[2022-11-12] MEDS: EZETIMIBE 10 MG TABLET PO SCH (09:47)
[2022-11-12] MEDS: LATANOPROST OPHTH DROPS 2.5ML BOTTLE OU SCH (09:48)
[2022-11-12] MEDS: LOTEPREDNOL ETABONATE 0.5% OP SCH (09:48)
[2022-11-12] MEDS: KETOROLAC TROMETHAMINE 1 GTT BOTTLE BOTH EYES SCH (09:48)
[2022-12-10] MEDS ORDERED: CYANOCOBALAMIN 1,000 MCG/ML VIAL IM SCH (09:00)
== END 2022-11-12 13:55 | DRG 482 ==
LOC: ED 14:40 → SUR 18:43 → MEDSUR 21:15
PROVIDERS: ADMIT Internal Medicine; ATTEND Internal Medicine

== ENCOUNTER 2023-06-08 05:36 | Inpatient (IN) ==
[2023-06-02 16:23] LABS: Basophils # (Auto) 0.08 K/mcL (0.00-0.30); Basophils % (Auto) 1.2 % (0.0-2.0); Eosinophils # (Auto) 0.22 K/mcL (0.00-0.70); Eosinophils % (Auto) 3.2 % (0.0-7.0); Hematocrit 40.8 % (34.1-44.9); Hemoglobin 12.8 g/dL (11.2-15.7); Lymphocytes % (Auto) 23.2 % (15.5-49.0); Mean Corpuscular HGB Conc 31.4 g/dL (31.0-36.0); Mean Platelet Volume 10.2 fL (8.8-12.5); Monocytes # (Auto) 0.72 K/mcL (0.10-0.90); Monocytes % (Auto) 10.4 % (1.0-12.0); Neutrophils % (Auto) 61.6 % (38.0-78.0); Platelet Count 204 K/mcL (140-440); RBC 4.08 M/mcL (3.59-5.38); Red Cell Distribution Width 13.4 % (11.5-14.5); WBC 6.9 K/mcL (4.5-11.0)
[2023-06-02 16:32] LABS: ALT/SGPT 10 U/L (<40); AST/SGOT 17 U/L (<32); Albumin/Globulin Ratio 1.4 (1.0-2.3); Alkaline Phosphatase 101 U/L (39-117); Bilirubin,Total 0.3 mg/dL (0.1-1.0); Blood Urea Nitrogen 25 mg/dL (8-23); Calcium 10.7 mg/dL (8.6-10.4); Carbon Dioxide 24 mmol/L (22-30); Chloride 102 mmol/L (96-108); Globulin 2.9 gm/dL (2.2-3.7); Glomerular Filtration Rate 54; Glucose 92 mg/dL (70-105)
[2023-06-02 16:40] LABS: INR 0.8 (0.9-1.1); Partial Thromboplastin Time 29.4 sec (20.0-37.0); Prothrombin Time 11.9 sec (11.9-14.5)
[~2023-06-08 05:36] MED LIST: FLEETS ADULT ENEMA PR ONE; IPRATROPIUM/ALBUTEROL 3 ML AMPUL.NEB NEB PRN; SCOPOLAMINE 1 PATCH PATCH TOPICAL PRN
[2023-06-08] MEDS ORDERED: metroNIDAZOLE 500 MG/100 ML BAG IV SCH (06:00)
[2023-06-08] MEDS ORDERED: 0.9 % SODIUM CHLORIDE 250 ML IV SCH (06:00)
[2023-06-08] MEDS ORDERED: ceFAZolin 2 GM in DEXTROSE 5% IN WATER 50 ML IV SCH (06:00)
[2023-06-08] MEDS ORDERED: LIDOCAINE HCL/PF 100 MG/5 ML SYRINGE IV ONE (07:43)
[2023-06-08] MEDS ORDERED: GLYCOPYRROLATE 0.2 MG/ML VIAL IV ONE (07:43)
[2023-06-08] MEDS ORDERED: METOCLOPRAMIDE 10 MG/2 ML VIAL ONE (07:43)
[2023-06-08] MEDS ORDERED: PROPOFOL 200 MG/20 ML VIAL IV ONE (07:43)
[2023-06-08] MEDS ORDERED: DEXAMETHASONE 10 MG/ML VIAL ONE (07:43)
[2023-06-08] MEDS ORDERED: ROCURONIUM 10 MG/ML ML IV ONE (07:43)
[2023-06-08] MEDS ORDERED: ePHEDrine 50 MG/5 ML SYRINGE (ANEST) IV ONE (07:43)
[2023-06-08] MEDS ORDERED: ONDANSETRON 4 MG/2 ML VIAL ONE (07:43)
[2023-06-08] MEDS ORDERED: fentaNYL 250 MCG/5 ML VIAL IV ONE (07:43)
[2023-06-08] MEDS ORDERED: ATROPINE SULFATE 0.4 MG/ML VIAL ONE (07:43)
[2023-06-08] MEDS ORDERED: NEOSTIGMINE 1 MG/ML ML ONE (07:43)
[2023-06-08] MEDS ORDERED: GENTAMICIN SULFATE 800 MG/20 ML VIAL IR ONE (08:22)
[2023-06-08] MEDS ORDERED: VANCOMYCIN 1 GM VIAL IR SCH (08:30)
[2023-06-08] MEDS ORDERED: MEPERIDINE 25 MG/ML VIAL IV PRN (10:09)
[2023-06-08] MEDS ORDERED: PROMETHAZINE 25 MG/ML VIAL IV PRN (10:09)
[2023-06-08] MEDS ORDERED: ONDANSETRON 4 MG/2 ML VIAL IV PRN (10:09)
[2023-06-08] MEDS ORDERED: METOPROLOL TARTRATE 5 MG/5 ML VIAL IV PRN (10:09)
[2023-06-08] MEDS ORDERED: NALOXONE HCL 0.4 MG/ML VIAL IV PRN (10:09)
[2023-06-08] MEDS ORDERED: IPRATROPIUM/ALBUTEROL 3 ML AMPUL.NEB NEB PRN (10:09)
[2023-06-08] MEDS ORDERED: diphenhydrAMINE 50 MG/ML VIAL IV PRN (10:09)
[2023-06-08] MEDS ORDERED: ATROPINE SULFATE 0.4 MG/ML VIAL IV PRN (10:09)
[2023-06-08] MEDS ORDERED: ePHEDrine 50 MG/ML AMPUL IV PRN (10:09)
[2023-06-08] MEDS ORDERED: HYDROmorphone 0.5 MG/0.5 ML SYRINGE IV PRN (10:09)
[2023-06-08] MEDS ORDERED: LABETALOL 5 MG/ML ML IV PRN (10:09)
[2023-06-08] MEDS ORDERED: LACTATED RINGERS 1,000 ML IV SCH (10:15)
[2023-06-08] MEDS: fentaNYL 100 MCG/2 ML VIAL IV PRN ×3 (10:17→10:33)
[2023-06-08] MEDS ORDERED: DOCUSATE SODIUM 100 MG CAPSULE PO PRN (11:22)
[2023-06-08] MEDS ORDERED: NITROGLYCERIN 0.4 MG TAB.SUBL SL PRN (11:22)
[2023-06-08] MEDS: ACETAMINOPHEN 500 MG/50 ML BAG IV SCH ×2 (12:13→17:13)
[2023-06-08] MEDS: 0.9 % SODIUM CHLORIDE 1,000 ML IV SCH (13:26)
[2023-06-08] MEDS: HYDROmorphone 0.5 MG/0.5 ML SYRINGE IV PRN ×3 (13:26→23:25)
[2023-06-08] MEDS: amLODIPine 5 MG TABLET PO SCH (21:19)
[2023-06-08] MEDS: LOSARTAN 50 MG TABLET PO SCH (21:20)
[2023-06-08] MEDS: METOPROLOL SUCCINATE 25 MG TAB.XL.24H PO SCH (21:20)
[2023-06-08] MEDS: POLYETHYLENE GLYCOL 3350 17 GM PACKET PO SCH (21:30)
[2023-06-09] MEDS: ACETAMINOPHEN 500 MG/50 ML BAG IV SCH ×5 (01:05→23:37)
[2023-06-09] MEDS: 0.9 % SODIUM CHLORIDE 1,000 ML IV SCH ×3 (04:57→20:12)
[2023-06-09] MEDS: HYDROmorphone 0.5 MG/0.5 ML SYRINGE IV PRN ×6 (07:06→23:37)
[2023-06-09 07:36] LABS: Basophils # (Auto) 0.03 K/mcL (0.00-0.30); Basophils % (Auto) 0.3 % (0.0-2.0); Eosinophils # (Auto) 0.07 K/mcL (0.00-0.70); Eosinophils % (Auto) 0.7 % (0.0-7.0); Hematocrit 38.2 % (34.1-44.9); Hemoglobin 11.3 g/dL (11.2-15.7); Lymphocytes # (Auto) 1.37 K/mcL (1.50-4.80); Lymphocytes % (Auto) 14.4 % (15.5-49.0); Mean Cell Volume 106.1 fL (80.0-100.0); Mean Corpuscular HGB Conc 29.6 g/dL (31.0-36.0); Mean Platelet Volume 10.2 fL (8.8-12.5); Monocytes # (Auto) 0.97 K/mcL (0.10-0.90); Monocytes % (Auto) 10.2 % (1.0-12.0); Neutrophils % (Auto) 74.1 % (38.0-78.0); Platelet Count 185 K/mcL (140-440); Red Cell Distribution Width 13.6 % (11.5-14.5); WBC 9.5 K/mcL (4.5-11.0)
[2023-06-09 07:51] LABS: ALT/SGPT 7 U/L (<40); AST/SGOT 20 U/L (<32); Albumin 3.4 gm/dL (3.2-5.2); Albumin/Globulin Ratio 1.3 (1.0-2.3); Alkaline Phosphatase 77 U/L (39-117); Bilirubin,Direct < 0.2 mg/dL (0-0.3); Bilirubin,Total 0.5 mg/dL (0.1-1.0); Blood Urea Nitrogen 10 mg/dL (8-23); Calcium 9.6 mg/dL (8.6-10.4); Carbon Dioxide 22 mmol/L (22-30); Chloride 109 mmol/L (96-108); Globulin 2.6 gm/dL (2.2-3.7); Glomerular Filtration Rate 83; Glucose 95 mg/dL (70-105); Lactate Dehydrogenase 216 U/L (135-225); Triglycerides 91 mg/dL (<150); Uric Acid 3.9 mg/dL (2.5-8.0)
[2023-06-09] MEDS: POLYETHYLENE GLYCOL 3350 17 GM PACKET PO SCH ×2 (08:52→20:20)
[2023-06-09] MEDS: amLODIPine 5 MG TABLET PO SCH ×2 (08:52→20:20)
[2023-06-09] MEDS: METOPROLOL SUCCINATE 25 MG TAB.XL.24H PO SCH (20:21)
[2023-06-09] MEDS: LOSARTAN 50 MG TABLET PO SCH (20:21)
[2023-06-10] MEDS: HYDROmorphone 0.5 MG/0.5 ML SYRINGE IV PRN ×5 (03:34→17:53)
[2023-06-10] MEDS: ACETAMINOPHEN 500 MG/50 ML BAG IV SCH ×3 (05:06→17:34)
[2023-06-10] MEDS: 0.9 % SODIUM CHLORIDE 1,000 ML IV SCH ×2 (05:07→11:22)
[2023-06-10] MEDS: amLODIPine 5 MG TABLET PO SCH ×2 (08:38→21:05)
[2023-06-10] MEDS: POLYETHYLENE GLYCOL 3350 17 GM PACKET PO SCH ×2 (08:38→21:05)
[2023-06-10 11:30] LABS: Basophils # (Auto) 0.09 K/mcL (0.00-0.30); Eosinophils # (Auto) 0.18 K/mcL (0.00-0.70); Hematocrit 36.1 % (34.1-44.9); Hemoglobin 11.2 g/dL (11.2-15.7); Lymphocytes # (Auto) 1.28 K/mcL (1.50-4.80); Lymphocytes % (Auto) 14.4 % (15.5-49.0); Mean Cell Volume 102.3 fL (80.0-100.0); Mean Platelet Volume 11.6 fL (8.8-12.5); Monocytes % (Auto) 7.9 % (1.0-12.0); Platelet Count 217 K/mcL (140-440); RBC 3.53 M/mcL (3.59-5.38); Red Cell Distribution Width 13.4 % (11.5-14.5); WBC 8.9 K/mcL (4.5-11.0)
[2023-06-10] MEDS ORDERED: METOCLOPRAMIDE 10 MG/2 ML VIAL IV SCH (18:00)
[2023-06-10] MEDS ORDERED: ACETAMINOPHEN 500 MG TABLET PO PRN (20:55)
[2023-06-10] MEDS: METOPROLOL SUCCINATE 25 MG TAB.XL.24H PO SCH (21:05)
[2023-06-10] MEDS: LOSARTAN 50 MG TABLET PO SCH (21:05)
[2023-06-10] MEDS: oxyCODONE IR 5 MG TABLET PO PRN (21:06)
[2023-06-11] MEDS: 0.9 % SODIUM CHLORIDE 1,000 ML IV SCH ×3 (01:25→23:29)
[2023-06-11] MEDS: METOCLOPRAMIDE 10 MG TABLET PO SCH ×5 (01:27→23:29)
[2023-06-11] MEDS ORDERED: ACETAMINOPHEN 500 MG TABLET PO ONE (01:31)
[2023-06-11] MEDS: oxyCODONE IR 5 MG TABLET PO PRN ×4 (03:15→22:41)
[2023-06-11 06:59] LABS: Basophils # (Auto) 0.07 K/mcL (0.00-0.30); Basophils % (Auto) 0.9 % (0.0-2.0); Eosinophils # (Auto) 0.22 K/mcL (0.00-0.70); Eosinophils % (Auto) 2.8 % (0.0-7.0); Hematocrit 33.3 % (34.1-44.9); Hemoglobin 10.6 g/dL (11.2-15.7); Lymphocytes # (Auto) 1.77 K/mcL (1.50-4.80); Lymphocytes % (Auto) 22.6 % (15.5-49.0); Mean Cell Volume 98.8 fL (80.0-100.0); Mean Corpuscular HGB Conc 31.8 g/dL (31.0-36.0); Mean Platelet Volume 9.8 fL (8.8-12.5); Monocytes % (Auto) 8.9 % (1.0-12.0); Neutrophils % (Auto) 64.3 % (38.0-78.0); Platelet Count 212 K/mcL (140-440); RBC 3.37 M/mcL (3.59-5.38); Red Cell Distribution Width 13.2 % (11.5-14.5); WBC 7.8 K/mcL (4.5-11.0)
[2023-06-11 07:07] LABS: ALT/SGPT 8 U/L (<40); AST/SGOT 20 U/L (<32); Albumin 3.2 gm/dL (3.2-5.2); Albumin/Globulin Ratio 1.2 (1.0-2.3); Alkaline Phosphatase 69 U/L (39-117); Bilirubin,Direct < 0.2 mg/dL (0-0.3); Bilirubin,Total 0.3 mg/dL (0.1-1.0); Blood Urea Nitrogen 10 mg/dL (8-23); Calcium 9.7 mg/dL (8.6-10.4); Carbon Dioxide 25 mmol/L (22-30); Chloride 105 mmol/L (96-108); Globulin 2.7 gm/dL (2.2-3.7); Glomerular Filtration Rate 83; Glucose 98 mg/dL (70-105); Lactate Dehydrogenase 183 U/L (135-225); Phosphorous 2.5 mg/dL (2.5-4.5); Triglycerides 135 mg/dL (<150); Uric Acid 3.4 mg/dL (2.5-8.0)
[2023-06-11] MEDS: POLYETHYLENE GLYCOL 3350 17 GM PACKET PO SCH ×2 (08:20→22:41)
[2023-06-11] MEDS: amLODIPine 5 MG TABLET PO SCH ×2 (08:20→22:40)
[2023-06-11] MEDS: BISACODYL 10 MG SUPP.RECT PR SCH ×2 (17:07→22:46)
[2023-06-11] MEDS: LOSARTAN 50 MG TABLET PO SCH (22:40)
[2023-06-11] MEDS: METOPROLOL SUCCINATE 25 MG TAB.XL.24H PO SCH (22:40)
[2023-06-12] MEDS: oxyCODONE IR 5 MG TABLET PO PRN ×3 (04:36→22:12)
[2023-06-12] MEDS: BISACODYL 10 MG SUPP.RECT PR SCH ×2 (04:37→11:28)
[2023-06-12] MEDS: METOCLOPRAMIDE 10 MG TABLET PO SCH ×4 (05:40→23:06)
[2023-06-12 06:44] LABS: Basophils # (Auto) 0.06 K/mcL (0.00-0.30); Basophils % (Auto) 0.7 % (0.0-2.0); Eosinophils # (Auto) 0.21 K/mcL (0.00-0.70); Eosinophils % (Auto) 2.4 % (0.0-7.0); Hematocrit 34.3 % (34.1-44.9); Hemoglobin 10.9 g/dL (11.2-15.7); Lymphocytes # (Auto) 1.46 K/mcL (1.50-4.80); Lymphocytes % (Auto) 16.8 % (15.5-49.0); Mean Cell Volume 98.8 fL (80.0-100.0); Mean Corpuscular HGB Conc 31.8 g/dL (31.0-36.0); Mean Platelet Volume 9.9 fL (8.8-12.5); Monocytes # (Auto) 0.89 K/mcL (0.10-0.90); Monocytes % (Auto) 10.2 % (1.0-12.0); Neutrophils % (Auto) 69.2 % (38.0-78.0); Platelet Count 221 K/mcL (140-440); RBC 3.47 M/mcL (3.59-5.38); Red Cell Distribution Width 13.2 % (11.5-14.5); WBC 8.7 K/mcL (4.5-11.0)
[2023-06-12 07:01] LABS: ALT/SGPT 7 U/L (<40); AST/SGOT 18 U/L (<32); Albumin 3.3 gm/dL (3.2-5.2); Albumin/Globulin Ratio 1.3 (1.0-2.3); Alkaline Phosphatase 67 U/L (39-117); Bilirubin,Direct < 0.2 mg/dL (0-0.3); Bilirubin,Total 0.4 mg/dL (0.1-1.0); Blood Urea Nitrogen 8 mg/dL (8-23); Calcium 9.7 mg/dL (8.6-10.4); Carbon Dioxide 25 mmol/L (22-30); Chloride 103 mmol/L (96-108); Globulin 2.5 gm/dL (2.2-3.7); Glomerular Filtration Rate 87; Glucose 104 mg/dL (70-105); Lactate Dehydrogenase 192 U/L (135-225); Phosphorous 2.5 mg/dL (2.5-4.5); Triglycerides 152 mg/dL (<150); Uric Acid 3.6 mg/dL (2.5-8.0)
[2023-06-12] MEDS: amLODIPine 5 MG TABLET PO SCH ×2 (08:38→20:17)
[2023-06-12] MEDS: POLYETHYLENE GLYCOL 3350 17 GM PACKET PO SCH ×2 (08:39→22:12)
[2023-06-12] MEDS: 0.9 % SODIUM CHLORIDE 1,000 ML IV SCH ×2 (11:29→11:34)
[2023-06-12] MEDS: MAGNESIUM HYDROXIDE 30 ML ORAL.SUSP PO SCH ×2 (17:10→22:13)
[2023-06-12] MEDS: ONDANSETRON 4 MG/2 ML VIAL IV PRN (19:49)
[2023-06-12] MEDS: METOPROLOL SUCCINATE 25 MG TAB.XL.24H PO SCH (20:17)
[2023-06-12] MEDS: LOSARTAN 50 MG TABLET PO SCH (20:17)
[2023-06-13] MEDS: 0.9 % SODIUM CHLORIDE 1,000 ML IV SCH ×3 (01:04→15:15)
[2023-06-13] MEDS: MAGNESIUM HYDROXIDE 30 ML ORAL.SUSP PO SCH ×2 (01:17→08:52)
[2023-06-13] MEDS: ONDANSETRON 4 MG/2 ML VIAL IV PRN (02:30)
[2023-06-13] MEDS: METOCLOPRAMIDE 10 MG TABLET PO SCH ×2 (06:32→12:19)
[2023-06-13 06:44] LABS: Basophils # (Auto) 0.07 K/mcL (0.00-0.30); Basophils % (Auto) 0.7 % (0.0-2.0); Eosinophils # (Auto) 0.05 K/mcL (0.00-0.70); Eosinophils % (Auto) 0.5 % (0.0-7.0); Hematocrit 34.8 % (34.1-44.9); Hemoglobin 11.4 g/dL (11.2-15.7); Lymphocytes # (Auto) 1.05 K/mcL (1.50-4.80); Lymphocytes % (Auto) 10.2 % (15.5-49.0); Mean Cell Volume 95.9 fL (80.0-100.0); Mean Corpuscular HGB Conc 32.8 g/dL (31.0-36.0); Mean Platelet Volume 10.1 fL (8.8-12.5); Monocytes # (Auto) 0.92 K/mcL (0.10-0.90); Neutrophils % (Auto) 79.1 % (38.0-78.0); Platelet Count 256 K/mcL (140-440); RBC 3.63 M/mcL (3.59-5.38); WBC 10.3 K/mcL (4.5-11.0)
[2023-06-13] MEDS: POLYETHYLENE GLYCOL 3350 17 GM PACKET PO SCH ×3 (08:49→20:05)
[2023-06-13] MEDS: amLODIPine 5 MG TABLET PO SCH ×2 (09:00→20:05)
[2023-06-13] MEDS: oxyCODONE IR 5 MG TABLET PO PRN ×3 (12:54→23:58)
[2023-06-13] MEDS: PYRIDOSTIGMINE BROMIDE 10 MG/2 ML AMPUL IV SCH ×2 (16:24→20:10)
[2023-06-13] MEDS: METOCLOPRAMIDE 10 MG/2 ML VIAL IV SCH ×2 (17:41→23:00)
[2023-06-13] MEDS: LOSARTAN 50 MG TABLET PO SCH (20:04)
[2023-06-13] MEDS: METOPROLOL SUCCINATE 25 MG TAB.XL.24H PO SCH (20:04)
[2023-06-14] MEDS: 0.9 % SODIUM CHLORIDE 1,000 ML IV SCH ×2 (03:55→17:46)
[2023-06-14] MEDS: PYRIDOSTIGMINE BROMIDE 10 MG/2 ML AMPUL IV SCH ×3 (03:55→17:59)
[2023-06-14] MEDS: METOCLOPRAMIDE 10 MG/2 ML VIAL IV SCH ×4 (05:08→23:29)
[2023-06-14] MEDS: amLODIPine 5 MG TABLET PO SCH ×2 (09:02→20:33)
[2023-06-14] MEDS: POLYETHYLENE GLYCOL 3350 17 GM PACKET PO SCH ×2 (09:02→20:35)
[2023-06-14] MEDS: oxyCODONE IR 5 MG TABLET PO PRN ×3 (12:04→23:28)
[2023-06-14] MEDS: HYDROmorphone 0.5 MG/0.5 ML SYRINGE IV PRN (20:32)
[2023-06-14] MEDS: LOSARTAN 50 MG TABLET PO SCH (20:33)
[2023-06-14] MEDS: METOPROLOL SUCCINATE 25 MG TAB.XL.24H PO SCH (20:34)
[2023-06-14] MEDS: BENZOCAINE/MENTHOL 1 LOZENGE PO PRN (20:34)
[2023-06-14] MEDS: CARBOXYMETHYLCELLULOSE SODIUM 1 EACH DROPER.GEL OU PRN (20:34)
[2023-06-15] MEDS: HYDROmorphone 0.5 MG/0.5 ML SYRINGE IV PRN ×5 (02:23→20:06)
[2023-06-15] MEDS ORDERED: SCOPOLAMINE 1 PATCH PATCH TOPICAL PRN (05:00)
[2023-06-15] MEDS ORDERED: IPRATROPIUM/ALBUTEROL 3 ML AMPUL.NEB NEB PRN ×2 (05:00→11:56)
[2023-06-15] MEDS: METOCLOPRAMIDE 10 MG/2 ML VIAL IV SCH ×3 (05:32→18:06)
[2023-06-15] MEDS: 0.9 % SODIUM CHLORIDE 1,000 ML IV SCH ×3 (07:18→16:58)
[2023-06-15] MEDS: amLODIPine 5 MG TABLET PO SCH (10:02)
[2023-06-15] MEDS: POLYETHYLENE GLYCOL 3350 17 GM PACKET PO SCH (10:02)
[2023-06-15] MEDS ORDERED: CEFEPIME 2 GM VIAL IV ONE (10:17)
[2023-06-15] MEDS ORDERED: ONDANSETRON 4 MG/2 ML VIAL ONE (10:33)
[2023-06-15] MEDS ORDERED: ROCURONIUM 10 MG/ML ML IV ONE (10:33)
[2023-06-15] MEDS ORDERED: fentaNYL 100 MCG/2 ML VIAL IV ONE (10:33)
[2023-06-15] MEDS ORDERED: ETOMIDATE 20 MG/10 ML VIAL IV ONE (10:33)
[2023-06-15] MEDS ORDERED: SUGAMMADEX SODIUM 200 MG/2 ML VIAL IV ONE (10:33)
[2023-06-15] MEDS ORDERED: PHENYLephrine 1 MG/10 ML SYRINGE (ANEST) ONE (10:33)
[2023-06-15] MEDS ORDERED: HYDROmorphone 0.5 MG/0.5 ML SYRINGE IV PRN (11:56)
[2023-06-15] MEDS ORDERED: PROMETHAZINE 25 MG/ML VIAL IV PRN (11:56)
[2023-06-15] MEDS ORDERED: ONDANSETRON 4 MG/2 ML VIAL IV PRN (11:56)
[2023-06-15] MEDS: ONDANSETRON 4 MG/2 ML VIAL IV PRN (12:53)
[2023-06-15] MEDS: fentaNYL 100 MCG/2 ML VIAL IV PRN ×7 (12:56→14:14)
[2023-06-15] MEDS ORDERED: CEFEPIME 2 GM VIAL IV SCH (13:00)
[2023-06-15] MEDS ORDERED: METHOCARBAMOL 1,000 MG/10 ML VIAL IV PRN (13:20)
[2023-06-15] MEDS: ACETAMINOPHEN 1,000 MG/100 ML BAG IV SCH ×2 (16:53→21:46)
[2023-06-15] MEDS: CARBOXYMETHYLCELLULOSE SODIUM 1 EACH DROPER.GEL OU PRN (16:57)
[2023-06-15] MEDS: BENZOCAINE/MENTHOL 1 LOZENGE PO PRN (20:05)
[2023-06-15] MEDS: oxyCODONE IR 5 MG TABLET PO PRN (20:06)
[2023-06-15] MEDS: CEFEPIME 2 GM VIAL IV SCH (22:33)
[2023-06-16] MEDS: METOCLOPRAMIDE 10 MG/2 ML VIAL IV SCH ×4 (00:36→18:31)
[2023-06-16] MEDS: ACETAMINOPHEN 1,000 MG/100 ML BAG IV SCH ×4 (02:45→19:52)
[2023-06-16] MEDS: HYDROmorphone 0.5 MG/0.5 ML SYRINGE IV PRN ×4 (03:00→16:55)
[2023-06-16] MEDS: oxyCODONE IR 5 MG TABLET PO PRN ×2 (03:01→16:55)
[2023-06-16] MEDS: 0.9 % SODIUM CHLORIDE 1,000 ML IV SCH ×2 (05:51→20:33)
[2023-06-16] MEDS: CEFEPIME 2 GM VIAL IV SCH ×3 (07:58→22:54)
[2023-06-16 08:01] LABS: ALT/SGPT 10 U/L (<40); AST/SGOT 21 U/L (<32); Albumin 2.4 gm/dL (3.2-5.2); Alkaline Phosphatase 57 U/L (39-117); Bilirubin,Direct < 0.2 mg/dL (0-0.3); Bilirubin,Total 0.3 mg/dL (0.1-1.0); Blood Urea Nitrogen 9 mg/dL (8-23); Calcium 8.6 mg/dL (8.6-10.4); Carbon Dioxide 20 mmol/L (22-30); Chloride 100 mmol/L (96-108); Globulin 2.4 gm/dL (2.2-3.7); Glomerular Filtration Rate 83; Glucose 72 mg/dL (70-105); Lactate Dehydrogenase 279 U/L (135-225); Phosphorous 4.1 mg/dL (2.5-4.5); Triglycerides 122 mg/dL (<150); Uric Acid 5.5 mg/dL (2.5-8.0)
[2023-06-16 08:07] LABS: Basophils # (Auto) 0.07 K/mcL (0.00-0.30); Basophils % (Auto) 0.7 % (0.0-2.0); Hemoglobin 10.8 g/dL (11.2-15.7); Lymphocytes # (Auto) 0.94 K/mcL (1.50-4.80); Lymphocytes % (Auto) 9.7 % (15.5-49.0); Mean Corpuscular HGB Conc 31.8 g/dL (31.0-36.0); Mean Platelet Volume 11.7 fL (8.8-12.5); Monocytes # (Auto) 1.02 K/mcL (0.10-0.90); Monocytes % (Auto) 10.5 % (1.0-12.0); Neutrophils % (Auto) 77.1 % (38.0-78.0); Platelet Count 209 K/mcL (140-440); RBC 3.47 M/mcL (3.59-5.38); Red Cell Distribution Width 13.2 % (11.5-14.5); WBC 9.7 K/mcL (4.5-11.0)
[2023-06-17] MEDS: METOCLOPRAMIDE 10 MG/2 ML VIAL IV SCH ×4 (00:34→17:07)
[2023-06-17] MEDS: ACETAMINOPHEN 1,000 MG/100 ML BAG IV SCH ×4 (02:56→20:46)
[2023-06-17] MEDS: CEFEPIME 2 GM VIAL IV SCH ×3 (05:02→20:46)
[2023-06-17 06:52] LABS: Basophils # (Auto) 0.05 K/mcL (0.00-0.30); Basophils % (Auto) 0.6 % (0.0-2.0); Eosinophils # (Auto) 0.19 K/mcL (0.00-0.70); Eosinophils % (Auto) 2.4 % (0.0-7.0); Hematocrit 29.4 % (34.1-44.9); Hemoglobin 9.3 g/dL (11.2-15.7); Lymphocytes % (Auto) 11.3 % (15.5-49.0); Mean Cell Volume 98.7 fL (80.0-100.0); Mean Corpuscular HGB Conc 31.6 g/dL (31.0-36.0); Monocytes # (Auto) 0.67 K/mcL (0.10-0.90); Monocytes % (Auto) 8.4 % (1.0-12.0); Neutrophils % (Auto) 76.7 % (38.0-78.0); Platelet Count 232 K/mcL (140-440); RBC 2.98 M/mcL (3.59-5.38); Red Cell Distribution Width 12.9 % (11.5-14.5)
[2023-06-17] MEDS: HYDROmorphone 0.5 MG/0.5 ML SYRINGE IV PRN ×2 (06:55→17:07)
[2023-06-17 07:22] LABS: ALT/SGPT 9 U/L (<40); AST/SGOT 14 U/L (<32); Albumin 2.4 gm/dL (3.2-5.2); Alkaline Phosphatase 59 U/L (39-117); Bilirubin,Direct < 0.2 mg/dL (0-0.3); Bilirubin,Total 0.4 mg/dL (0.1-1.0); Blood Urea Nitrogen 9 mg/dL (8-23); Calcium 8.8 mg/dL (8.6-10.4); Carbon Dioxide 24 mmol/L (22-30); Chloride 103 mmol/L (96-108); Globulin 2.3 gm/dL (2.2-3.7); Glomerular Filtration Rate 83; Glucose 82 mg/dL (70-105); Lactate Dehydrogenase 188 U/L (135-225); Phosphorous 2.4 mg/dL (2.5-4.5); Triglycerides 113 mg/dL (<150); Uric Acid 6.1 mg/dL (2.5-8.0)
[2023-06-17] MEDS: oxyCODONE IR 5 MG TABLET PO PRN ×2 (10:07→17:08)
[2023-06-17] MEDS: 0.9 % SODIUM CHLORIDE 1,000 ML IV SCH (11:51)
[2023-06-17] MEDS ORDERED: POTASSIUM PHOSPHATE 40 MEQ in DEXTROSE 5% IN WATER 500 ML IV SCH (16:00)
[2023-06-17] MEDS: ONDANSETRON 4 MG/2 ML VIAL IV PRN (19:46)
[2023-06-17] MEDS: METOPROLOL TARTRATE 5 MG/5 ML VIAL IV PRN (20:44)
[2023-06-18] MEDS: 0.9 % SODIUM CHLORIDE 1,000 ML IV SCH ×2 (01:14→13:07)
[2023-06-18] MEDS: ACETAMINOPHEN 1,000 MG/100 ML BAG IV SCH ×4 (03:25→21:15)
[2023-06-18] MEDS: METOCLOPRAMIDE 10 MG/2 ML VIAL IV SCH ×5 (05:40→23:24)
[2023-06-18] MEDS: CEFEPIME 2 GM VIAL IV SCH ×3 (05:40→21:15)
[2023-06-18] MEDS: 0.9 % SODIUM CHLORIDE 10 ML SYRINGE IV SCH ×3 (05:42→21:15)
[2023-06-18 06:34] LABS: Basophils # (Auto) 0.08 K/mcL (0.00-0.30); Eosinophils # (Auto) 0.25 K/mcL (0.00-0.70); Eosinophils % (Auto) 3.1 % (0.0-7.0); Hematocrit 30.8 % (34.1-44.9); Hemoglobin 9.7 g/dL (11.2-15.7); Lymphocytes # (Auto) 0.91 K/mcL (1.50-4.80); Lymphocytes % (Auto) 11.4 % (15.5-49.0); Mean Cell Volume 99.4 fL (80.0-100.0); Mean Corpuscular HGB Conc 31.5 g/dL (31.0-36.0); Mean Platelet Volume 9.8 fL (8.8-12.5); Monocytes # (Auto) 0.75 K/mcL (0.10-0.90); Monocytes % (Auto) 9.4 % (1.0-12.0); Neutrophils % (Auto) 74.6 % (38.0-78.0); Platelet Count 238 K/mcL (140-440)
[2023-06-18 06:58] LABS: ALT/SGPT 8 U/L (<40); AST/SGOT 14 U/L (<32); Albumin 2.8 gm/dL (3.2-5.2); Albumin/Globulin Ratio 1.3 (1.0-2.3); Alkaline Phosphatase 64 U/L (39-117); Bilirubin,Direct < 0.2 mg/dL (0-0.3); Bilirubin,Total 0.3 mg/dL (0.1-1.0); Blood Urea Nitrogen 11 mg/dL (8-23); Calcium 8.8 mg/dL (8.6-10.4); Carbon Dioxide 26 mmol/L (22-30); Chloride 103 mmol/L (96-108); Globulin 2.2 gm/dL (2.2-3.7); Glomerular Filtration Rate 83; Glucose 91 mg/dL (70-105); Lactate Dehydrogenase 193 U/L (135-225); Phosphorous 2.5 mg/dL (2.5-4.5); Triglycerides 126 mg/dL (<150)
[2023-06-18] MEDS: ONDANSETRON 4 MG/2 ML VIAL IV PRN (08:32)
[2023-06-18] MEDS ORDERED: DIATRIZOATE MEGLU/DIATRIZO SOD 120 ML BOTTLE PO ONE (11:04)
[2023-06-18] MEDS ORDERED: DIATRIZOATE MEGLU/DIATRIZO SOD 30 ML BOTTLE PO ONE (11:04)
[2023-06-18] MEDS: HYDROmorphone 0.5 MG/0.5 ML SYRINGE IV PRN ×3 (13:07→23:24)
[2023-06-19] MEDS: 0.9 % SODIUM CHLORIDE 1,000 ML IV SCH ×2 (02:47→16:58)
[2023-06-19] MEDS: ACETAMINOPHEN 1,000 MG/100 ML BAG IV SCH ×4 (02:47→19:55)
[2023-06-19] MEDS: HYDROmorphone 0.5 MG/0.5 ML SYRINGE IV PRN ×3 (03:50→19:01)
[2023-06-19] MEDS: CEFEPIME 2 GM VIAL IV SCH ×3 (05:30→21:53)
[2023-06-19] MEDS: METOCLOPRAMIDE 10 MG/2 ML VIAL IV SCH ×4 (05:30→23:47)
[2023-06-19] MEDS: 0.9 % SODIUM CHLORIDE 10 ML SYRINGE IV SCH ×3 (05:30→21:54)
[2023-06-19 06:56] LABS: Basophils # (Auto) 0.07 K/mcL (0.00-0.30); Eosinophils # (Auto) 0.22 K/mcL (0.00-0.70); Eosinophils % (Auto) 3.1 % (0.0-7.0); Hematocrit 30.2 % (34.1-44.9); Hemoglobin 9.6 g/dL (11.2-15.7); Lymphocytes # (Auto) 1.05 K/mcL (1.50-4.80); Lymphocytes % (Auto) 14.9 % (15.5-49.0); Mean Cell Volume 99.3 fL (80.0-100.0); Mean Corpuscular HGB Conc 31.8 g/dL (31.0-36.0); Mean Platelet Volume 9.9 fL (8.8-12.5); Monocytes # (Auto) 0.57 K/mcL (0.10-0.90); Monocytes % (Auto) 8.1 % (1.0-12.0); Neutrophils % (Auto) 72.1 % (38.0-78.0); Platelet Count 244 K/mcL (140-440); RBC 3.04 M/mcL (3.59-5.38); Red Cell Distribution Width 12.9 % (11.5-14.5); WBC 7.1 K/mcL (4.5-11.0)
[2023-06-19 07:20] LABS: ALT/SGPT 9 U/L (<40); AST/SGOT 16 U/L (<32); Albumin 2.5 gm/dL (3.2-5.2); Albumin/Globulin Ratio 1.2 (1.0-2.3); Alkaline Phosphatase 62 U/L (39-117); Bilirubin,Direct < 0.2 mg/dL (0-0.3); Bilirubin,Total 0.4 mg/dL (0.1-1.0); Blood Urea Nitrogen 12 mg/dL (8-23); Calcium 8.7 mg/dL (8.6-10.4); Carbon Dioxide 24 mmol/L (22-30); Chloride 103 mmol/L (96-108); Globulin 2.1 gm/dL (2.2-3.7); Glomerular Filtration Rate 87; Glucose 84 mg/dL (70-105); Lactate Dehydrogenase 189 U/L (135-225); Triglycerides 127 mg/dL (<150); Uric Acid 4.6 mg/dL (2.5-8.0)
[2023-06-19] MEDS: POLYETHYLENE GLYCOL 3350 17 GM PACKET PO SCH (08:46)
[2023-06-19] MEDS: ONDANSETRON 4 MG/2 ML VIAL IV PRN ×2 (08:47→20:25)
[2023-06-19] MEDS ORDERED: TPN PER PHARMACY IV SCH (13:45)
[2023-06-19] MEDS: MAGNESIUM HYDROXIDE 30 ML ORAL.SUSP PO SCH ×3 (14:50→21:53)
[2023-06-19] MEDS ORDERED: SODIUM CHLORIDE IV SCH (15:00)
[2023-06-19] MEDS ORDERED: [UNRECOGNIZED DRUG - OTHER] IV SCH (15:00)
[2023-06-19] MEDS ORDERED: POTASSIUM CHLORIDE IV SCH (15:00)
[2023-06-19] MEDS ORDERED: CALCIUM GLUCONATE IV SCH (15:00)
[2023-06-19] MEDS: PYRIDOSTIGMINE BROMIDE 10 MG/2 ML AMPUL SC SCH ×3 (16:17→23:47)
[2023-06-20] MEDS: ONDANSETRON 4 MG/2 ML VIAL IV PRN ×2 (00:52→18:52)
[2023-06-20] MEDS: ACETAMINOPHEN 1,000 MG/100 ML BAG IV SCH ×4 (02:50→20:58)
[2023-06-20] MEDS: HYDROmorphone 0.5 MG/0.5 ML SYRINGE IV PRN ×2 (03:57→20:58)
[2023-06-20] MEDS: METOCLOPRAMIDE 10 MG/2 ML VIAL IV SCH ×4 (06:15→23:34)
[2023-06-20] MEDS: PYRIDOSTIGMINE BROMIDE 10 MG/2 ML AMPUL SC SCH ×3 (06:16→17:22)
[2023-06-20] MEDS: CEFEPIME 2 GM VIAL IV SCH ×3 (06:16→20:58)
[2023-06-20] MEDS: 0.9 % SODIUM CHLORIDE 1,000 ML IV SCH ×2 (06:19→22:00)
[2023-06-20 07:16] LABS: ALT/SGPT 9 U/L (<40); AST/SGOT 14 U/L (<32); Albumin 2.7 gm/dL (3.2-5.2); Albumin/Globulin Ratio 1.4 (1.0-2.3); Alkaline Phosphatase 60 U/L (39-117); Bilirubin,Direct < 0.2 mg/dL (0-0.3); Bilirubin,Total 0.2 mg/dL (0.1-1.0); Blood Urea Nitrogen 11 mg/dL (8-23); Calcium 8.8 mg/dL (8.6-10.4); Carbon Dioxide 27 mmol/L (22-30); Chloride 106 mmol/L (96-108); Globulin 1.9 gm/dL (2.2-3.7); Glomerular Filtration Rate 87; Glucose 154 mg/dL (70-105); Lactate Dehydrogenase 197 U/L (135-225); Phosphorous 1.7 mg/dL (2.5-4.5); Triglycerides 179 mg/dL (<150); Uric Acid 4.7 mg/dL (2.5-8.0)
[2023-06-20] MEDS: 0.9 % SODIUM CHLORIDE 10 ML SYRINGE IV SCH ×3 (07:36→22:08)
[2023-06-20] MEDS: oxyCODONE IR 5 MG TABLET PO PRN ×2 (10:54→18:53)
[2023-06-20] MEDS: POLYETHYLENE GLYCOL 3350 17 GM PACKET PO SCH (10:55)
[2023-06-20] MEDS: FAT EMULSION 20% 250 ML IV SCH (10:59)
[2023-06-20] MEDS: POTASSIUM PHOSPHATE 40 MEQ in DEXTROSE 5% IN WATER 500 ML IV SCH ×2 (14:35→19:35)
[2023-06-20] MEDS ORDERED: POTASSIUM CHLORIDE IV SCH (15:00)
[2023-06-20] MEDS ORDERED: POTASSIUM PHOSPHATE IV SCH (15:00)
[2023-06-20] MEDS ORDERED: MVI IV SCH (15:00)
[2023-06-20] MEDS ORDERED: SODIUM CHLORIDE IV SCH (15:00)
[2023-06-20] MEDS ORDERED: [UNRECOGNIZED DRUG - OTHER] IV SCH (15:00)
[2023-06-21] MEDS: ACETAMINOPHEN 1,000 MG/100 ML BAG IV SCH ×4 (02:37→19:47)
[2023-06-21] MEDS: oxyCODONE IR 5 MG TABLET PO PRN ×4 (02:40→23:36)
[2023-06-21] MEDS: 0.9 % SODIUM CHLORIDE 1,000 ML IV SCH ×2 (04:44→19:17)
[2023-06-21] MEDS: METOCLOPRAMIDE 10 MG/2 ML VIAL IV SCH ×4 (05:44→23:33)
[2023-06-21] MEDS: 0.9 % SODIUM CHLORIDE 10 ML SYRINGE IV SCH ×3 (05:44→21:43)
[2023-06-21] MEDS: CEFEPIME 2 GM VIAL IV SCH ×3 (05:44→21:25)
[2023-06-21] MEDS: POLYETHYLENE GLYCOL 3350 17 GM PACKET PO SCH (08:17)
[2023-06-21 08:19] LABS: ALT/SGPT 9 U/L (<40); AST/SGOT 13 U/L (<32); Albumin 2.8 gm/dL (3.2-5.2); Albumin/Globulin Ratio 1.5 (1.0-2.3); Alkaline Phosphatase 58 U/L (39-117); Bilirubin,Direct < 0.2 mg/dL (0-0.3); Bilirubin,Total < 0.2 mg/dL (0.1-1.0); Blood Urea Nitrogen 11 mg/dL (8-23); Calcium 8.6 mg/dL (8.6-10.4); Carbon Dioxide 25 mmol/L (22-30); Chloride 107 mmol/L (96-108); Globulin 1.9 gm/dL (2.2-3.7); Glomerular Filtration Rate 87; Glucose 132 mg/dL (70-105); Lactate Dehydrogenase 210 U/L (135-225); Triglycerides 134 mg/dL (<150); Uric Acid 3.1 mg/dL (2.5-8.0)
[2023-06-21] MEDS ORDERED: POTASSIUM CHLORIDE IV SCH (15:00)
[2023-06-21] MEDS ORDERED: MVI IV SCH (15:00)
[2023-06-21] MEDS ORDERED: [UNRECOGNIZED DRUG - OTHER] IV SCH (15:00)
[2023-06-21] MEDS ORDERED: POTASSIUM PHOSPHATE IV SCH (15:00)
[2023-06-21] MEDS ORDERED: SODIUM CHLORIDE IV SCH (15:00)
[2023-06-21] MEDS: METHYLNALTREXONE BROMIDE 12 MG/0.6 ML SYRINGE SQ SCH (15:33)
[2023-06-21] MEDS: CARBOXYMETHYLCELLULOSE SODIUM 1 EACH DROPER.GEL OU PRN (17:11)
[2023-06-22] MEDS: ACETAMINOPHEN 1,000 MG/100 ML BAG IV SCH ×4 (03:20→21:32)
[2023-06-22] MEDS: 0.9 % SODIUM CHLORIDE 10 ML SYRINGE IV SCH ×3 (04:24→21:33)
[2023-06-22] MEDS: oxyCODONE IR 5 MG TABLET PO PRN ×3 (04:40→17:55)
[2023-06-22] MEDS: CEFEPIME 2 GM VIAL IV SCH ×3 (05:55→21:32)
[2023-06-22] MEDS: METOCLOPRAMIDE 10 MG/2 ML VIAL IV SCH ×4 (05:56→23:13)
[2023-06-22 06:19] LABS: Basophils # (Auto) 0.11 K/mcL (0.00-0.30); Basophils % (Auto) 1.4 % (0.0-2.0); Eosinophils # (Auto) 0.41 K/mcL (0.00-0.70); Eosinophils % (Auto) 5.4 % (0.0-7.0); Hematocrit 34.6 % (34.1-44.9); Hemoglobin 9.7 g/dL (11.2-15.7); Lymphocytes # (Auto) 1.39 K/mcL (1.50-4.80); Lymphocytes % (Auto) 18.2 % (15.5-49.0); Mean Cell Volume 110.9 fL (80.0-100.0); Mean Platelet Volume 9.7 fL (8.8-12.5); Monocytes # (Auto) 1.09 K/mcL (0.10-0.90); Monocytes % (Auto) 14.3 % (1.0-12.0); Neutrophils % (Auto) 58.3 % (38.0-78.0); Platelet Count 226 K/mcL (140-440); RBC 3.12 M/mcL (3.59-5.38); Red Cell Distribution Width 13.5 % (11.5-14.5); WBC 7.6 K/mcL (4.5-11.0)
[2023-06-22 06:39] LABS: ALT/SGPT 9 U/L (<40); AST/SGOT 15 U/L (<32); Albumin 2.6 gm/dL (3.2-5.2); Albumin/Globulin Ratio 1.1 (1.0-2.3); Alkaline Phosphatase 58 U/L (39-117); Bilirubin,Direct < 0.2 mg/dL (0-0.3); Bilirubin,Total 0.2 mg/dL (0.1-1.0); Blood Urea Nitrogen 14 mg/dL (8-23); Calcium 9.2 mg/dL (8.6-10.4); Carbon Dioxide 23 mmol/L (22-30); Chloride 107 mmol/L (96-108); Globulin 2.3 gm/dL (2.2-3.7); Glomerular Filtration Rate 87; Glucose 116 mg/dL (70-105); Lactate Dehydrogenase 248 U/L (135-225); Phosphorous 2.7 mg/dL (2.5-4.5); Triglycerides 166 mg/dL (<150); Uric Acid 2.5 mg/dL (2.5-8.0)
[2023-06-22] MEDS: 0.9 % SODIUM CHLORIDE 1,000 ML IV SCH ×2 (09:43→22:51)
[2023-06-22] MEDS: FAT EMULSION 20% 250 ML IV SCH (09:43)
[2023-06-22] MEDS: POLYETHYLENE GLYCOL 3350 17 GM PACKET PO SCH (09:48)
[2023-06-22] MEDS: CARBOXYMETHYLCELLULOSE SODIUM 1 EACH DROPER.GEL OU PRN ×2 (11:16→17:11)
[2023-06-22] MEDS: METHYLNALTREXONE BROMIDE 12 MG/0.6 ML SYRINGE SQ SCH (13:55)
[2023-06-22] MEDS ORDERED: IOPAMIDOL 100 ML BOTTLE IV ONE (14:45)
[2023-06-22] MEDS ORDERED: POTASSIUM CHLORIDE IV SCH (15:00)
[2023-06-22] MEDS ORDERED: POTASSIUM PHOSPHATE IV SCH (15:00)
[2023-06-22] MEDS ORDERED: MVI IV SCH (15:00)
[2023-06-22] MEDS ORDERED: SODIUM CHLORIDE IV SCH (15:00)
[2023-06-22] MEDS ORDERED: [UNRECOGNIZED DRUG - OTHER] IV SCH (15:00)
[2023-06-22] MEDS: HYDROmorphone 0.5 MG/0.5 ML SYRINGE IV PRN (22:51)
[2023-06-23] MEDS: ACETAMINOPHEN 1,000 MG/100 ML BAG IV SCH ×4 (03:31→20:07)
[2023-06-23 06:04] LABS: Basophils # (Auto) 0.07 K/mcL (0.00-0.30); Eosinophils # (Auto) 0.34 K/mcL (0.00-0.70); Eosinophils % (Auto) 4.9 % (0.0-7.0); Hematocrit 28.2 % (34.1-44.9); Hemoglobin 8.7 g/dL (11.2-15.7); Lymphocytes # (Auto) 0.99 K/mcL (1.50-4.80); Lymphocytes % (Auto) 14.2 % (15.5-49.0); Mean Cell Volume 102.2 fL (80.0-100.0); Mean Corpuscular HGB Conc 30.9 g/dL (31.0-36.0); Mean Platelet Volume 9.7 fL (8.8-12.5); Monocytes # (Auto) 0.81 K/mcL (0.10-0.90); Monocytes % (Auto) 11.6 % (1.0-12.0); Neutrophils % (Auto) 66.4 % (38.0-78.0); Platelet Count 240 K/mcL (140-440); RBC 2.76 M/mcL (3.59-5.38); Red Cell Distribution Width 13.5 % (11.5-14.5)
[2023-06-23] MEDS: CEFEPIME 2 GM VIAL IV SCH ×2 (06:09→13:28)
[2023-06-23] MEDS: 0.9 % SODIUM CHLORIDE 10 ML SYRINGE IV SCH ×3 (06:09→20:07)
[2023-06-23] MEDS: METOCLOPRAMIDE 10 MG/2 ML VIAL IV SCH ×3 (06:09→17:09)
[2023-06-23 06:36] LABS: ALT/SGPT 8 U/L (<40); AST/SGOT 12 U/L (<32); Albumin 2.4 gm/dL (3.2-5.2); Albumin/Globulin Ratio 0.9 (1.0-2.3); Alkaline Phosphatase 59 U/L (39-117); Bilirubin,Direct < 0.2 mg/dL (0-0.3); Bilirubin,Total < 0.2 mg/dL (0.1-1.0); Blood Urea Nitrogen 15 mg/dL (8-23); Calcium 9.1 mg/dL (8.6-10.4); Carbon Dioxide 21 mmol/L (22-30); Chloride 106 mmol/L (96-108); Globulin 2.6 gm/dL (2.2-3.7); Glomerular Filtration Rate 87; Glucose 129 mg/dL (70-105); Lactate Dehydrogenase 216 U/L (135-225); Phosphorous 2.9 mg/dL (2.5-4.5); Triglycerides 108 mg/dL (<150); Uric Acid 2.2 mg/dL (2.5-8.0)
[2023-06-23] MEDS: POLYETHYLENE GLYCOL 3350 17 GM PACKET PO SCH (08:11)
[2023-06-23] MEDS: oxyCODONE IR 5 MG TABLET PO PRN ×2 (11:18→17:09)
[2023-06-23] MEDS: METHYLNALTREXONE BROMIDE 12 MG/0.6 ML SYRINGE SQ SCH (11:19)
[2023-06-23] MEDS: 0.9 % SODIUM CHLORIDE 1,000 ML IV SCH (11:52)
[2023-06-23] MEDS ORDERED: POTASSIUM CHLORIDE IV SCH (14:00)
[2023-06-23] MEDS ORDERED: [UNRECOGNIZED DRUG - OTHER] IV SCH (14:00)
[2023-06-23] MEDS ORDERED: POTASSIUM PHOSPHATE IV SCH (14:00)
[2023-06-23] MEDS ORDERED: MVI IV SCH (14:00)
[2023-06-23] MEDS ORDERED: SODIUM CHLORIDE IV SCH (14:00)
[2023-06-23] MEDS: ONDANSETRON 4 MG/2 ML VIAL IV PRN ×2 (14:28→22:38)
[2023-06-23] MEDS: HYDROmorphone 0.5 MG/0.5 ML SYRINGE IV PRN (17:58)
[2023-06-23] MEDS ORDERED: DIATRIZOATE MEGLU/DIATRIZO SOD 120 ML BOTTLE PO ONE (20:00)
[2023-06-24] MEDS: oxyCODONE IR 5 MG TABLET PO PRN (00:12)
[2023-06-24] MEDS: HYDROmorphone 0.5 MG/0.5 ML SYRINGE IV PRN ×5 (00:12→19:09)
[2023-06-24] MEDS: METOCLOPRAMIDE 10 MG/2 ML VIAL IV SCH ×4 (00:20→17:08)
[2023-06-24] MEDS: 0.9 % SODIUM CHLORIDE 1,000 ML IV SCH ×2 (01:56→15:22)
[2023-06-24] MEDS: ACETAMINOPHEN 1,000 MG/100 ML BAG IV SCH ×4 (03:07→21:22)
[2023-06-24] MEDS: 0.9 % SODIUM CHLORIDE 10 ML SYRINGE IV SCH ×3 (05:51→22:03)
[2023-06-24 06:46] LABS: Basophils # (Auto) 0.07 K/mcL (0.00-0.30); Basophils % (Auto) 0.8 % (0.0-2.0); Eosinophils # (Auto) 0.28 K/mcL (0.00-0.70); Eosinophils % (Auto) 3.4 % (0.0-7.0); Hematocrit 28.5 % (34.1-44.9); Hemoglobin 8.7 g/dL (11.2-15.7); Lymphocytes # (Auto) 0.97 K/mcL (1.50-4.80); Lymphocytes % (Auto) 11.7 % (15.5-49.0); Mean Cell Volume 102.9 fL (80.0-100.0); Mean Corpuscular HGB Conc 30.5 g/dL (31.0-36.0); Mean Platelet Volume 9.5 fL (8.8-12.5); Monocytes % (Auto) 12.1 % (1.0-12.0); Neutrophils % (Auto) 70.8 % (38.0-78.0); Platelet Count 234 K/mcL (140-440); RBC 2.77 M/mcL (3.59-5.38); Red Cell Distribution Width 13.5 % (11.5-14.5); WBC 8.3 K/mcL (4.5-11.0)
[2023-06-24] MEDS: FAT EMULSION 20% 250 ML IV SCH (08:17)
[2023-06-24] MEDS: POLYETHYLENE GLYCOL 3350 17 GM PACKET PO SCH (08:17)
[2023-06-24 09:28] LABS: ALT/SGPT 7 U/L (<40); AST/SGOT 14 U/L (<32); Albumin 2.5 gm/dL (3.2-5.2); Alkaline Phosphatase 61 U/L (39-117); Bilirubin,Direct < 0.2 mg/dL (0-0.3); Bilirubin,Total 0.2 mg/dL (0.1-1.0); Blood Urea Nitrogen 13 mg/dL (8-23); Calcium 8.6 mg/dL (8.6-10.4); Carbon Dioxide 25 mmol/L (22-30); Chloride 108 mmol/L (96-108); Globulin 2.6 gm/dL (2.2-3.7); Glomerular Filtration Rate 92; Glucose 119 mg/dL (70-105); Lactate Dehydrogenase 225 U/L (135-225); Phosphorous 3.5 mg/dL (2.5-4.5); Triglycerides 149 mg/dL (<150); Uric Acid 1.7 mg/dL (2.5-8.0)
[2023-06-24] MEDS: PYRIDOSTIGMINE BROMIDE 10 MG/2 ML AMPUL SC SCH ×3 (09:59→21:22)
[2023-06-24] MEDS ORDERED: POTASSIUM CHLORIDE IV SCH (14:00)
[2023-06-24] MEDS ORDERED: SODIUM CHLORIDE IV SCH (14:00)
[2023-06-24] MEDS ORDERED: [UNRECOGNIZED DRUG - OTHER] IV SCH (14:00)
[2023-06-24] MEDS ORDERED: POTASSIUM PHOSPHATE IV SCH (14:00)
[2023-06-24] MEDS ORDERED: MVI IV SCH (14:00)
[2023-06-25] MEDS: METOCLOPRAMIDE 10 MG/2 ML VIAL IV SCH ×4 (00:03→17:25)
[2023-06-25] MEDS: ACETAMINOPHEN 1,000 MG/100 ML BAG IV SCH ×4 (02:53→20:21)
[2023-06-25] MEDS: PYRIDOSTIGMINE BROMIDE 10 MG/2 ML AMPUL SC SCH ×4 (02:53→20:21)
[2023-06-25] MEDS: oxyCODONE IR 5 MG TABLET PO PRN ×4 (02:54→20:13)
[2023-06-25] MEDS: 0.9 % SODIUM CHLORIDE 10 ML SYRINGE IV SCH ×3 (05:19→23:48)
[2023-06-25] MEDS: 0.9 % SODIUM CHLORIDE 1,000 ML IV SCH ×2 (05:19→18:25)
[2023-06-25 07:06] LABS: ALT/SGPT 6 U/L (<40); AST/SGOT 11 U/L (<32); Albumin 2.4 gm/dL (3.2-5.2); Alkaline Phosphatase 61 U/L (39-117); Bilirubin,Direct < 0.2 mg/dL (0-0.3); Bilirubin,Total < 0.2 mg/dL (0.1-1.0); Blood Urea Nitrogen 12 mg/dL (8-23); Calcium 8.8 mg/dL (8.6-10.4); Carbon Dioxide 26 mmol/L (22-30); Chloride 108 mmol/L (96-108); Globulin 2.4 gm/dL (2.2-3.7); Glomerular Filtration Rate 92; Glucose 132 mg/dL (70-105); Lactate Dehydrogenase 173 U/L (135-225); Phosphorous 3.6 mg/dL (2.5-4.5); Triglycerides 108 mg/dL (<150); Uric Acid 1.7 mg/dL (2.5-8.0)
[2023-06-25] MEDS: POLYETHYLENE GLYCOL 3350 17 GM PACKET PO SCH (08:30)
[2023-06-25] MEDS: HYDROmorphone 0.5 MG/0.5 ML SYRINGE IV PRN ×2 (09:32→20:13)
[2023-06-25] MEDS ORDERED: POTASSIUM PHOSPHATE IV SCH (14:00)
[2023-06-25] MEDS ORDERED: [UNRECOGNIZED DRUG - OTHER] IV SCH (14:00)
[2023-06-25] MEDS ORDERED: MVI IV SCH (14:00)
[2023-06-25] MEDS ORDERED: POTASSIUM CHLORIDE IV SCH (14:00)
[2023-06-25] MEDS ORDERED: SODIUM CHLORIDE IV SCH (14:00)
[2023-06-26] MEDS: HYDROmorphone 0.5 MG/0.5 ML SYRINGE IV PRN ×2 (00:09→21:38)
[2023-06-26] MEDS: METOCLOPRAMIDE 10 MG/2 ML VIAL IV SCH ×4 (00:11→17:32)
[2023-06-26] MEDS: PYRIDOSTIGMINE BROMIDE 10 MG/2 ML AMPUL SC SCH ×4 (04:27→21:36)
[2023-06-26] MEDS: ACETAMINOPHEN 1,000 MG/100 ML BAG IV SCH ×4 (04:27→21:36)
[2023-06-26] MEDS: oxyCODONE IR 5 MG TABLET PO PRN ×3 (04:30→17:31)
[2023-06-26] MEDS: METOPROLOL TARTRATE 5 MG/5 ML VIAL IV PRN (04:32)
[2023-06-26] MEDS: 0.9 % SODIUM CHLORIDE 10 ML SYRINGE IV SCH ×3 (06:29→22:00)
[2023-06-26 07:09] LABS: ALT/SGPT 6 U/L (<40); AST/SGOT 10 U/L (<32); Albumin 2.3 gm/dL (3.2-5.2); Albumin/Globulin Ratio 0.8 (1.0-2.3); Alkaline Phosphatase 67 U/L (39-117); Bilirubin,Direct < 0.2 mg/dL (0-0.3); Bilirubin,Total < 0.2 mg/dL (0.1-1.0); Blood Urea Nitrogen 12 mg/dL (8-23); Calcium 8.9 mg/dL (8.6-10.4); Carbon Dioxide 24 mmol/L (22-30); Chloride 107 mmol/L (96-108); Globulin 2.9 gm/dL (2.2-3.7); Glomerular Filtration Rate 92; Glucose 127 mg/dL (70-105); Lactate Dehydrogenase 182 U/L (135-225); Phosphorous 3.4 mg/dL (2.5-4.5); Triglycerides 160 mg/dL (<150); Uric Acid 1.7 mg/dL (2.5-8.0)
[2023-06-26] MEDS: 0.9 % SODIUM CHLORIDE 1,000 ML IV SCH ×2 (08:29→21:39)
[2023-06-26] MEDS: POLYETHYLENE GLYCOL 3350 17 GM PACKET PO SCH (08:30)
[2023-06-26] MEDS ORDERED: MVI IV SCH (14:00)
[2023-06-26] MEDS ORDERED: POTASSIUM CHLORIDE IV SCH (14:00)
[2023-06-26] MEDS ORDERED: [UNRECOGNIZED DRUG - OTHER] IV SCH (14:00)
[2023-06-26] MEDS ORDERED: SODIUM CHLORIDE IV SCH (14:00)
[2023-06-26] MEDS ORDERED: POTASSIUM PHOSPHATE IV SCH (14:00)
[2023-06-26] MEDS ORDERED: hydrOXYzine 25 MG TABLET PO PRN (17:51)
[2023-06-26] MEDS ORDERED: hydrALAZINE 20 MG/ML VIAL IV ONE (23:56)
[2023-06-27] MEDS ORDERED: hydrALAZINE 20 MG/ML VIAL ONE
[2023-06-27] MEDS: METOCLOPRAMIDE 10 MG/2 ML VIAL IV SCH ×4 (00:23→17:52)
[2023-06-27] MEDS: oxyCODONE IR 5 MG TABLET PO PRN ×3 (01:30→22:29)
[2023-06-27] MEDS: HYDROmorphone 0.5 MG/0.5 ML SYRINGE IV PRN (01:31)
[2023-06-27] MEDS: ACETAMINOPHEN 1,000 MG/100 ML BAG IV SCH ×4 (03:07→22:34)
[2023-06-27] MEDS: PYRIDOSTIGMINE BROMIDE 10 MG/2 ML AMPUL SC SCH ×2 (03:07→09:06)
[2023-06-27] MEDS: 0.9 % SODIUM CHLORIDE 10 ML SYRINGE IV SCH ×3 (06:16→22:31)
[2023-06-27 06:59] LABS: Basophils # (Auto) 0.09 K/mcL (0.00-0.30); Basophils % (Auto) 1.4 % (0.0-2.0); Eosinophils # (Auto) 0.22 K/mcL (0.00-0.70); Eosinophils % (Auto) 3.4 % (0.0-7.0); Hematocrit 26.4 % (34.1-44.9); Lymphocytes # (Auto) 1.58 K/mcL (1.50-4.80); Lymphocytes % (Auto) 24.6 % (15.5-49.0); Mean Cell Volume 100.4 fL (80.0-100.0); Mean Corpuscular HGB Conc 30.3 g/dL (31.0-36.0); Mean Platelet Volume 9.7 fL (8.8-12.5); Monocytes # (Auto) 0.96 K/mcL (0.10-0.90); Neutrophils % (Auto) 54.8 % (38.0-78.0); Platelet Count 280 K/mcL (140-440); RBC 2.63 M/mcL (3.59-5.38); Red Cell Distribution Width 13.1 % (11.5-14.5); WBC 6.4 K/mcL (4.5-11.0)
[2023-06-27 07:15] LABS: ALT/SGPT 6 U/L (<40); AST/SGOT 11 U/L (<32); Albumin 2.4 gm/dL (3.2-5.2); Albumin/Globulin Ratio 0.9 (1.0-2.3); Alkaline Phosphatase 65 U/L (39-117); Bilirubin,Direct < 0.2 mg/dL (0-0.3); Bilirubin,Total < 0.2 mg/dL (0.1-1.0); Blood Urea Nitrogen 13 mg/dL (8-23); Calcium 8.9 mg/dL (8.6-10.4); Carbon Dioxide 27 mmol/L (22-30); Chloride 106 mmol/L (96-108); Globulin 2.7 gm/dL (2.2-3.7); Glomerular Filtration Rate 92; Glucose 105 mg/dL (70-105); Lactate Dehydrogenase 192 U/L (135-225); Phosphorous 4.3 mg/dL (2.5-4.5); Triglycerides 167 mg/dL (<150); Uric Acid 1.8 mg/dL (2.5-8.0)
[2023-06-27] MEDS: POLYETHYLENE GLYCOL 3350 17 GM PACKET PO SCH (09:07)
[2023-06-27] MEDS: FAT EMULSION 20% 250 ML IV SCH (09:07)
[2023-06-27] MEDS: 0.9 % SODIUM CHLORIDE 1,000 ML IV SCH (12:07)
[2023-06-27] MEDS ORDERED: POTASSIUM CHLORIDE IV SCH (14:00)
[2023-06-27] MEDS ORDERED: POTASSIUM PHOSPHATE IV SCH (14:00)
[2023-06-27] MEDS ORDERED: SODIUM CHLORIDE IV SCH (14:00)
[2023-06-27] MEDS ORDERED: MVI IV SCH (14:00)
[2023-06-27] MEDS ORDERED: [UNRECOGNIZED DRUG - OTHER] IV SCH (14:00)
[2023-06-27] MEDS: PYRIDOSTIGMINE 60 MG TABLET PO SCH ×2 (15:44→22:29)
[2023-06-28] MEDS: 0.9 % SODIUM CHLORIDE 1,000 ML IV SCH ×3 (05:00→20:59)
[2023-06-28] MEDS: METOCLOPRAMIDE 10 MG/2 ML VIAL IV SCH ×6 (05:15→23:31)
[2023-06-28] MEDS: oxyCODONE IR 5 MG TABLET PO PRN ×4 (05:34→23:42)
[2023-06-28] MEDS: ACETAMINOPHEN 1,000 MG/100 ML BAG IV SCH ×4 (05:34→20:09)
[2023-06-28] MEDS: 0.9 % SODIUM CHLORIDE 10 ML SYRINGE IV SCH ×3 (05:48→20:09)
[2023-06-28] MEDS ORDERED: amLODIPine 5 MG TABLET ONE (06:13)
[2023-06-28 06:46] LABS: Basophils # (Auto) 0.07 K/mcL (0.00-0.30); Basophils % (Auto) 1.1 % (0.0-2.0); Eosinophils % (Auto) 4.9 % (0.0-7.0); Hematocrit 26.8 % (34.1-44.9); Hemoglobin 8.1 g/dL (11.2-15.7); Lymphocytes # (Auto) 1.37 K/mcL (1.50-4.80); Lymphocytes % (Auto) 22.2 % (15.5-49.0); Mean Cell Volume 101.1 fL (80.0-100.0); Mean Corpuscular HGB Conc 30.2 g/dL (31.0-36.0); Mean Platelet Volume 10.4 fL (8.8-12.5); Monocytes # (Auto) 0.89 K/mcL (0.10-0.90); Monocytes % (Auto) 14.4 % (1.0-12.0); Neutrophils % (Auto) 56.9 % (38.0-78.0); Platelet Count 297 K/mcL (140-440); RBC 2.65 M/mcL (3.59-5.38); Red Cell Distribution Width 13.2 % (11.5-14.5); WBC 6.2 K/mcL (4.5-11.0)
[2023-06-28] MEDS: amLODIPine 10 MG TABLET PO SCH ×2 (06:57→09:07)
[2023-06-28 07:09] LABS: ALT/SGPT 9 U/L (<40); AST/SGOT 16 U/L (<32); Albumin 2.7 gm/dL (3.2-5.2); Alkaline Phosphatase 69 U/L (39-117); Bilirubin,Direct < 0.2 mg/dL (0-0.3); Bilirubin,Total < 0.2 mg/dL (0.1-1.0); Blood Urea Nitrogen 13 mg/dL (8-23); Calcium 9.5 mg/dL (8.6-10.4); Carbon Dioxide 28 mmol/L (22-30); Chloride 107 mmol/L (96-108); Globulin 2.8 gm/dL (2.2-3.7); Glomerular Filtration Rate 87; Glucose 89 mg/dL (70-105); Lactate Dehydrogenase 224 U/L (135-225); Phosphorous 3.8 mg/dL (2.5-4.5); Triglycerides 124 mg/dL (<150)
[2023-06-28] MEDS: PYRIDOSTIGMINE 60 MG TABLET PO SCH ×3 (08:57→20:09)
[2023-06-28] MEDS: POLYETHYLENE GLYCOL 3350 17 GM PACKET PO SCH (08:57)
[2023-06-28] MEDS ORDERED: [UNRECOGNIZED DRUG - REMARK] IV SCH (14:00)
[2023-06-28 18:10] LABS: ALT/SGPT 8 U/L (<40); AST/SGOT 13 U/L (<32); Albumin 2.8 gm/dL (3.2-5.2); Alkaline Phosphatase 71 U/L (39-117); Bilirubin,Direct < 0.2 mg/dL (0-0.3); Bilirubin,Total < 0.2 mg/dL (0.1-1.0); Blood Urea Nitrogen 15 mg/dL (8-23); Calcium 9.6 mg/dL (8.6-10.4); Carbon Dioxide 27 mmol/L (22-30); Chloride 103 mmol/L (96-108); Globulin 2.9 gm/dL (2.2-3.7); Glomerular Filtration Rate 87; Glucose 103 mg/dL (70-105); Lactate Dehydrogenase 190 U/L (135-225); Triglycerides 129 mg/dL (<150); Uric Acid 2.1 mg/dL (2.5-8.0)
[2023-06-28] MEDS: HYDROmorphone 0.5 MG/0.5 ML SYRINGE IV PRN (22:30)
[2023-06-29] MEDS: ACETAMINOPHEN 1,000 MG/100 ML BAG IV SCH ×4 (03:23→20:56)
[2023-06-29] MEDS: METOCLOPRAMIDE 10 MG/2 ML VIAL IV SCH ×4 (05:58→23:40)
[2023-06-29] MEDS: 0.9 % SODIUM CHLORIDE 10 ML SYRINGE IV SCH ×3 (06:04→23:45)
[2023-06-29] MEDS: oxyCODONE IR 5 MG TABLET PO PRN ×4 (06:04→23:41)
[2023-06-29 06:45] LABS: Basophils # (Auto) 0.09 K/mcL (0.00-0.30); Basophils % (Auto) 1.5 % (0.0-2.0); Eosinophils % (Auto) 4.9 % (0.0-7.0); Hematocrit 26.7 % (34.1-44.9); Hemoglobin 8.3 g/dL (11.2-15.7); Lymphocytes # (Auto) 1.25 K/mcL (1.50-4.80); Lymphocytes % (Auto) 20.4 % (15.5-49.0); Mean Corpuscular HGB Conc 31.1 g/dL (31.0-36.0); Mean Platelet Volume 9.8 fL (8.8-12.5); Monocytes % (Auto) 11.4 % (1.0-12.0); Neutrophils % (Auto) 61.1 % (38.0-78.0); Platelet Count 299 K/mcL (140-440); RBC 2.67 M/mcL (3.59-5.38); Red Cell Distribution Width 13.3 % (11.5-14.5); WBC 6.1 K/mcL (4.5-11.0)
[2023-06-29 07:16] LABS: ALT/SGPT 7 U/L (<40); AST/SGOT 14 U/L (<32); Albumin 2.9 gm/dL (3.2-5.2); Albumin/Globulin Ratio 1.1 (1.0-2.3); Alkaline Phosphatase 75 U/L (39-117); Bilirubin,Direct < 0.2 mg/dL (0-0.3); Bilirubin,Total 0.2 mg/dL (0.1-1.0); Blood Urea Nitrogen 12 mg/dL (8-23); Calcium 9.4 mg/dL (8.6-10.4); Carbon Dioxide 27 mmol/L (22-30); Chloride 104 mmol/L (96-108); Globulin 2.7 gm/dL (2.2-3.7); Glomerular Filtration Rate 87; Glucose 84 mg/dL (70-105); Lactate Dehydrogenase 166 U/L (135-225); Phosphorous 3.6 mg/dL (2.5-4.5); Triglycerides 212 mg/dL (<150); Uric Acid 2.6 mg/dL (2.5-8.0)
[2023-06-29] MEDS: amLODIPine 10 MG TABLET PO SCH (09:40)
[2023-06-29] MEDS: POLYETHYLENE GLYCOL 3350 17 GM PACKET PO SCH (09:41)
[2023-06-29] MEDS: PYRIDOSTIGMINE 60 MG TABLET PO SCH ×3 (09:41→20:56)
[2023-06-29] MEDS: 0.9 % SODIUM CHLORIDE 1,000 ML IV SCH (09:52)
[2023-06-30] MEDS: 0.9 % SODIUM CHLORIDE 1,000 ML IV SCH ×3 (01:47→16:31)
[2023-06-30] MEDS: ACETAMINOPHEN 1,000 MG/100 ML BAG IV SCH ×4 (02:45→20:36)
[2023-06-30] MEDS: 0.9 % SODIUM CHLORIDE 10 ML SYRINGE IV SCH ×3 (05:26→20:37)
[2023-06-30] MEDS: METOCLOPRAMIDE 10 MG/2 ML VIAL IV SCH ×3 (05:26→17:06)
[2023-06-30 07:25] LABS: ALT/SGPT 8 U/L (<40); AST/SGOT 14 U/L (<32); Albumin 2.7 gm/dL (3.2-5.2); Albumin/Globulin Ratio 0.9 (1.0-2.3); Alkaline Phosphatase 81 U/L (39-117); Bilirubin,Direct < 0.2 mg/dL (0-0.3); Bilirubin,Total 0.2 mg/dL (0.1-1.0); Blood Urea Nitrogen 12 mg/dL (8-23); Calcium 9.8 mg/dL (8.6-10.4); Carbon Dioxide 26 mmol/L (22-30); Chloride 103 mmol/L (96-108); Globulin 2.9 gm/dL (2.2-3.7); Glomerular Filtration Rate 83; Glucose 79 mg/dL (70-105); Lactate Dehydrogenase 164 U/L (135-225); Phosphorous 3.5 mg/dL (2.5-4.5); Triglycerides 162 mg/dL (<150); Uric Acid 4.1 mg/dL (2.5-8.0)
[2023-06-30] MEDS: POLYETHYLENE GLYCOL 3350 17 GM PACKET PO SCH (07:58)
[2023-06-30] MEDS: amLODIPine 10 MG TABLET PO SCH (07:58)
[2023-06-30] MEDS: PYRIDOSTIGMINE 60 MG TABLET PO SCH ×3 (07:58→20:37)
[2023-06-30] MEDS: oxyCODONE IR 5 MG TABLET PO PRN ×3 (08:49→22:08)
[2023-06-30] MEDS: ONDANSETRON 4 MG/2 ML VIAL IV PRN (18:36)
[2023-07-01] MEDS: METOCLOPRAMIDE 10 MG/2 ML VIAL IV SCH ×3 (00:28→13:25)
[2023-07-01] MEDS: ACETAMINOPHEN 1,000 MG/100 ML BAG IV SCH ×2 (02:37→08:35)
[2023-07-01] MEDS: oxyCODONE IR 5 MG TABLET PO PRN ×3 (02:42→14:48)
[2023-07-01] MEDS: HYDROmorphone 0.5 MG/0.5 ML SYRINGE IV PRN ×3 (03:45→11:58)
[2023-07-01] MEDS: 0.9 % SODIUM CHLORIDE 10 ML SYRINGE IV SCH ×2 (05:08→13:25)
[2023-07-01] MEDS: 0.9 % SODIUM CHLORIDE 1,000 ML IV SCH ×2 (05:11→08:34)
[2023-07-01] MEDS: amLODIPine 10 MG TABLET PO SCH (08:34)
[2023-07-01] MEDS: POLYETHYLENE GLYCOL 3350 17 GM PACKET PO SCH (08:35)
[2023-07-01] MEDS: PYRIDOSTIGMINE 60 MG TABLET PO SCH (08:42)
[2023-07-01 15:14] VITALS: TEMP 98; O2SAT 97
== END 2023-07-01 15:15 | DRG 329 ==
LOC: MEDSUR 05:36 → EDSTATUS 07:30
PROVIDERS: ADMIT Family Medicine Adult Medicine; ATTEND Family Medicine Adult Medicine